=== PATIENT | female | born 1955 | race Caucasian/White ===

== ENCOUNTER → 2017-04-28 | Day surgery (SDC) | payer BC, OTHER ==
[2017-04-22 11:51] VITALS: Ht 162.6 cm; Wt 127.3 kg
[~2017-04-28] VITALS: Ht 162.6 cm; Wt 127.3 kg
[~2017-04-28] MED LIST: ALBU18002 INH; CITA20TA4 PO; LIDOCAINE HCL 2% 2 ML VIAL (20MG/ML) ONE; LPT/40 PO; METFTAB PO; PROPOFOL IV EMULSION 10 MG/ML 20 ML VIAL IV ONE; SODIUM CHLORIDE 0.9% 500ML 500 ML IV ONE; TRIA37.5 PO
[2017-04-28 08:14] VITALS: TEMP 36.7
--- NOTE | 2017-04-28 08:20 | Endo History and Physical ---
History & Physical Date of Service: Apr 28, 2017. Chief Complaint: screening,history of polyps Referring Physician: Dr. Hannah Siegel History of Present Illness Screening colonoscopy in patient at high risk (history of polyps) Past Surgical History Hx Cardiac Surgery: No Hx Internal Defibrillator: No Hx Pacemaker: No Hx Abdominal Surgery: Yes (TUBAL LIGATION) Hx of Implantable Prosthesis: No Hx Post-Op Nausea and Vomiting: No Hx Cancer Surgery: No Hx Thoracic Surgery: No Hx Orthopedic: Yes (RT KNEE ARTHROSCOPY) Hx Urinary Tract Surgery: No Family History IBD Social History Smoking Status: Never Smoker Hx Substance Use: No Hx Alcohol Use: No Allergies Coded Allergies: Amoxicillin (Verified Allergy, Unknown, HIVES, 04/22/17) Current Medications Reported Home Medications Medications Dose Route/Sig Max Daily Dose Days Date Category Proair Respiclick (Albuterol Sulfate) 108 Mcg/Act Aer 2 Puff INH QID PRN 04/22/17 Reported Lipitor (Atorvastatin) 40 Mg Tab 40 Mg PO QPM 04/22/17 Reported Citalopram Hydrobromide 20 Mg Tab 1 Tab PO DAILY AT NOON 90 04/22/17 Reported Glucophage Ext Rel (Metformin HCl) 500 Mg Tab 500 Mg PO DAILY AT NOON 04/22/17 Reported Dyazide 37.5MG/25MG (Triamterene/HCTZ) Cap 1 Tab PO DAILY AT NOON 04/22/17 Reported Vital Signs Weight (Kilograms): 127.27 Height (Feet): 5 Height (Inches): 4 Date Time Temp Pulse Resp B/P (MAP) Pulse Ox O2 Delivery O2 Flow Rate FiO2 04/28/17 08:14 36.7 74 16 154/95 (114) 97 Room Air Physical Exam General Appearance: WD/WN, no apparent distress, + obese Respiratory/Chest: Auscultation: breath sounds normal, no wheezing Cardiovascular: Heart Auscultation: RRR, no murmurs Abdomen: Inspection & Palpation: soft, no tenderness, guarding & rebound Assessment and Plan Cleared for colonoscopy.
--- NOTE | 2017-04-28 09:15 | GI REPORT ---
Procedure Date: 04/28/2017 8:41 AM Procedure: Colonoscopy Indications: High risk colon cancer surveillance: Personal history of colonic polyps Medicines: Propofol per Anesthesia Complications: No immediate complications. Estimated blood loss: None. Estimated Blood Loss: Estimated blood loss: none. Procedure: Pre-Anesthesia Assessment: - Prior to the procedure, a History and Physical was performed, and patient medications, allergies and sensitivities were reviewed. The patient's tolerance of previous anesthesia was reviewed. - ASA Grade Assessment: III - A patient with severe systemic disease. After I obtained informed consent, the scope was passed under direct vision. Throughout the procedure, the patient's blood pressure, pulse, and oxygen saturations were monitored continuously. The On-site loaner was introduced through the anus and advanced to the cecum, identified by appendiceal orifice and ileocecal valve. The colonoscopy was performed without difficulty. The patient tolerated the procedure well. The quality of the bowel preparation was excellent. The bowel preparation used was split dose MIralax. Findings: Many diverticula were found in the left colon. Impression: - Diverticulosis in the left colon. - No specimens collected. - The colon was otherwise normal to the cecum with retroflexed views of the colon and terminal ileum. Recommendation: - Repeat colonoscopy in 5 years for surveillance. - Discharge patient to home (with escort). Calvin Welsh M.D. Calvin Welsh MD 04/28/2017 9:14:57 AM This report has been signed electronically. Note Initiated On: 04/28/2017 8:41 AM I attest to the content of the Intraoperative Record and orders documented therein, exceptions below
--- NOTE | 2017-04-28 09:29 | Discharge Instructions ---
Endoscopy Patient Instructions Date / Procedure(s) Performed Apr 28, 2017. Colonoscopy Allergy Information Coded Allergies: Amoxicillin (Verified Allergy, Unknown, HIVES, 04/22/17) Discharge Date / Findings Apr 28, 2017. Diverticulosis. History of colon polyp. Medication Instructions Stopped Medication(s): stopped Metformin last Friday Restart Stopped Medication(s): Restart all medications today. Provider Instructions Activity Restrictions - No exercising or heavy lifting for 24 hours. - Do not drink alcohol the day of the procedure. - Do not drive a car or operate machinery until the day after the procedure. - Do not make any important decisions or sign important papers in 24 hours after the procedure. Following Day: - Return to full activity which may include returning to work/school. Diet Start your diet with liquids and light foods (jello, soup, juice, toast). Then eat your usual diet if not nauseated. Treatment For Common After Affects For mild abdominal pain, bloating, or excessive gas: - Rest - Eat lightly - Lie on right side Follow-Up Information Follow-up with Dr. Hannah Siegel as scheduled Anesthesia Information What You Should Know You have had a procedure that required some medicine to reduce anxiety and discomfort. This treatment is called moderate sedation. After receiving the treatment, you may be sleepy, but you will be able to breathe on your own. The effects of the treatment may last for several hours. Follow these instructions along with Activity/Diet recommendations noted above: * Do NOT do anything where dizziness or clumsiness would be dangerous. * Rest quietly at home today, then you can be up and about tomorrow. * Have a responsible person stay with you the rest of today. * You may have had an I.V. today. If so, you may take the dressing off later today. Recommendations Call your doctor if: * Trouble breathing * Continuous vomiting for more than 24 hours * Temperature above 101 degrees * Severe abdominal pain or bloating * Pain not relieved by pain medicine ordered * There is increased drainage or redness from any incision * A large amount of rectal bleeding greater than 2-3 tablespoons. (If you had a polyp/s removed or have hemorrhoids, a small amount of blood - from the rectum is to be expected.) * You have any unanswered questions or concerns. IN THE EVENT OF A SERIOUS EMERGENCY, GO TO THE NEAREST EMERGENCY ROOM Your discharge instructions were prepared by provider Calvin Welsh. Patient Instructions Signature Page Nandini San Patient (or Guardian) Signature/Date: I have read and understand the instructions given to me by my caregivers. Caregiver/RN/Doctor Signature/Date: The above-named patient and/or guardian has received patient instructions on this date. + Original Patient Signature Page (only) stays with chart. Please make copy for patient.
[2017-04-28 09:44] VITALS: BP 145/81; PULSE 67; O2SAT 96
--- NOTE | 2017-04-28 11:11 | Anesthesiology Progress Note ---
Anesthesia Post Op Note Date & Time Apr 28, 2017 at 11:11 Vital Signs Pain Intensity: 0 Vital Signs Past 12 Hours Date Time Temp Pulse Resp B/P (MAP) Pulse Ox O2 Delivery O2 Flow Rate FiO2 04/28/17 09:44 67 18 145/81 (102) 96 Room Air 04/28/17 09:27 70 18 118/84 (95) 97 Room Air 04/28/17 09:12 71 16 118/65 (82) 94 Room Air 04/28/17 08:14 36.7 74 16 154/95 (114) 97 Room Air Notes Mental Status: alert / awake / arousable, participated in evaluation Pt Amnestic to Procedure: Yes Nausea / Vomiting: adequately controlled Pain: adequately controlled Airway Patency, RR, SpO2: stable & adequate BP & HR: stable & adequate Hydration State: stable & adequate Anesthetic Complications: no major complications apparent
== END | disposition home or self-care (01) ==
LOC: C.GI 07:53
PROVIDERS: ATTEND Internal Medicine Gastroenterology
DX: Z12.11 Encounter for screening for malignant neoplasm of colon (principal); K57.30 Diverticulosis of large intestine without perforation or abscess without bleeding; Z86.010 Personal history of colon polyps; Z79.84 Long term (current) use of oral hypoglycemic drugs; Z79.899 Other long term (current) drug therapy

== ENCOUNTER 2024-11-13 15:35 | Observation (INO) ==
--- OUTSIDE RECORDS SUMMARY | 2024-11-13 15:42 | External Medical Summary | Summary of Care ---
Author Name Unknown Organization [facility] Address [address] [place] [address] Phone [phone] Care Team Providers Care Ambulatory Service Representative Name Role Phone Hannah Siegel DO Primary Care Provider Reason for Visit * Reason Comments Chemotherapy Taxotere and Cytoxan * Episode Based Medications (Routine) - Authorized Specialty Diagnoses / Procedures Referred By Contdaysi t Referred To Contact Diagnoses Prevention of chemotherapy-induced neutropenia Encounter for antineoplastic chemotherapy Malignant neoplasm of upper-outer quadrant of left breast in female, estrogen receptor negative (HCC) Procedures RI PALONOSETRON HCL RI INJECTION, FULPHILA RI DOCETAXEL INJECTION RI INJ CYCLOPHOSPHAMD Sudheer Sorensen MD [address] [place] [address] [place] [address] Phone: tel: fax: Hematology/Oncology Treatment, [address] [address] Phone: tel: fax: Referral ID Status Reason Start Date Expiration Date V isits Requested Visits Authorized [id number] Authorized 10/08/2024 04/07/2025 [id number] Encounter Details Date Type Department Care Team (Latest Contact Info) Description 11/09/2024 11:30 AM EDT Hem/Onc Treatment Hematology/Oncolog y Treatment, [address] [phone] Gillian, Chair 10 Hem Onc [address] [place] [address] Prevention of chemotherapy-induced neutropenia*; Encounter for antineoplastic chemotherapy; Malignant neoplasm of upper-outer quadrant of left breast in female, estrogen receptor negative (HCC) Allergies Active Allergy Reactions Criticality Noted Date Comments Amoxicillin 12/11/2000 [place] documented as of this encounter (statuses as of 11/09/2024) Medications Albuterol Sulfate HFA 108 (90 Base) MCG/ACT Inhalation Aerosol Solution Inhale 2 Puffs by mouth every 6 hours as needed for Shortness of Breath or Wheezing. 18 g 11 09/24/19 23 Active Additional Information Patient not taking.Reported on 10/15/2024 Levothyroxine Sodium 50 MCG Oral Tablet (Levoxyl) Take 1 Tablet by mouth in the morning. (at least 30 min prior to breakfast or other meds). 90 Tablet 3 04/28/20 24 Active Atorvastatin Calcium 40 MG Oral Tablet (Lipitor)Indicatio ns:Dyslipidemia, goal LDL below 100 Take 1 Tablet by mouth in the morning. 90 Tablet 3 08/31/19 25 Active Citalopram Hydrobromide 20 MG Oral Tablet (CeleXA) Take 1 Tablet by mouth in the morning. 90 Tablet 1 09/01/19 25 Active Naproxen Sodium 220 MG Oral Capsule (Aleve) Take 1 Capsule by mouth 2 times a day as needed for Pain, Moderate. Active Empagliflozin 10 MG Oral Tablet (Jardiance)Indicat ions:Type 2 diabetes mellitus with hemoglobin A1c goal of less than 7.5% ([facility]) Take 1 Tablet by mouth in the morning. 90 Tablet 3 09/14/19 25 Active Omeprazole 20 MG Oral Capsule Delayed Release (PriLOSEC)Indicati ons:Gastroesophage al reflux disease without esophagitis Take 1 Capsule by mouth in the morning. 1 hour before the first meal of the day. 90 Capsule 3 09/14/19 25 Active LORazepam 0.5 MG Oral Tablet (Ativan)Indication s:Malignant neoplasm of upper-outer quadrant of left breast in female, estrogen receptor negative (HCC) Take 1 Tablet by mouth 2 times a day as needed for Anxiety or Sleep. 60 Tablet 1 09/14/19 25 Active Additional Information Patient not taking.Reported on 10/15/2024 Losartan Potassium 25 MG Oral Tablet (Cozaar)Indication s:HTN, goal below 130/80 Take 1 Tablet by mouth in the morning. 90 Tablet 1 10/07/19 25 Active Diclofenac Sodium 1 % External Gel (Voltaren)Indicati ons:Primary osteoarthritis of both knees Apply topically to affected area 2 times a day. Apply to knee. 50 g 1 10/07/19 25 Active Ondansetron HCl 8 MG Oral Tablet (Zofran)Indication s:Malignant neoplasm of upper-outer quadrant of left breast in female, estrogen receptor negative (HCC) Take 1 Tablet by mouth every 8 hours as needed for Nausea. 30 Tablet 2 10/08/19 25 Active Additional Information Patient not taking.Reported on 10/15/2024 Prochlorperazine Maleate 10 MG Oral Tablet (Compazine)Indicat ions:Malignant neoplasm of upper-outer quadrant of left breast in female, estrogen receptor negative (HCC) Take 1 Tablet by mouth every 6 hours as needed for Nausea. 30 Tablet 3 10/08/19 25 Active Additional Information Patient not taking.Reported on 10/15/2024 dexAMETHasone 4 MG Oral Tablet (Decadron)Indicati ons:Malignant neoplasm of upper-outer quadrant of left breast in female, estrogen receptor negative (HCC) Take 2 tablets (8mg) by mouth twice a day for 3 days starting the day prior to chemotherapy. 48 Tablet 10/08/19 25 Active Additional Information Patient not taking.Reported on 10/15/2024 Triamterene-HCTZ 37.5-25 MG Oral TabletIndications: Hypokalemia,HTN, goal below 130/80 Take 1 Tablet by mouth in the morning. 30 Tablet 5 10/14/19 25 Active Potassium Chloride Sloane ER 20 MEQ Oral Tablet Extended ReleaseIndications :Hypokalemia Take 1 Tablet by mouth in the morning and 1 Tablet before bedtime. 180 Tablet 1 10/16/19 25 Active Loratadine 10 MG Oral Tablet (Claritin)Indicati ons:Malignant neoplasm of upper-outer quadrant of left breast in female, estrogen receptor negative (HCC) TAKE 1 TABLET BY MOUTH FOR 5 DAYS STARTING THE DAY OF CHEMOTHERAPY. 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 documented as of this encounter (statuses as of 11/09/2024) Resolved Problems Problem Noted Date Diagnosed Date Resolved Date Ganglion cyst of joint of fi nger of right hand 10/26/2021 04/18/2023 Morbid obesity due to excess calories 03/03/2020 03/20/2021 Cough 03/10/2019 03/03/2020 Chronic right-sided low back pain with right-sided sciatica 03/10/2019 11/18/2023 Prediabetes 03/04/2018 09/12/2020 Anxiety state 08/27/2017 03/04/2018 Essential hypertension with goal blood pressure less than 140/90 08/19/2016 09/12/2020 Thoracic degenerative disc disease 08/19/2016 08/27/2017 BLANCA (generalized anxiety disorder) 04/10/2015 11/18/2023 Persistent insomnia 12/28/2014 08/27/19 18 HTN, goal below 140/90 12/28/201408/19 HTN, goal below 140/80 03/30/201212/28 Overview: Per HTN Protocol #27. Obesity, Class III, BMI 40-4 9.9 (morbid obesity) 08/21/2011 03/20/2021 Major depressive disorder 08/21/2011 Overview (06/03/2017): ICD-10 update of inactive term Primary localized osteoarthrosis, lower leg 04/09/2011 04/01/2017 Body mass index (BMI) of 40.0-44.9 in adult 12/06/2010 08/21/2011 Overview (11/21/2015): ICD-10 update of inactive term Asthma with severity to be determined 02/01/2010 08/01/2010 Overview (11/20/2015): Per Asthma Taxonomy ICD-10 update of inactive term Obesity, morbid (more than 1 00 lbs over ideal weight or BMI > 40) 01/23/2010 12/06/2010 Overview (10/30/2015): Per Obesity Protocol, #19 ICD-10 update of inactive term HTN, goal below 140/90 06/16/200908/10 Overview (06/16/2009): Modified per HTN Taxonomy. DM type 2 causing eye disease 06/08/2009 03/04/2018 Overview (12/05/2015): Per Diabetes Taxonomy. ICD-10 update of inactive term Type 2 diabetes mellitus wit h hemoglobin A1c goal of less than 7.0% 05/17/2008 06/08/2009 Overview (12/05/2015): Per Diabetes Taxonomy. ICD-10 update of inactive term Degeneration of cervical intervertebral disc 8 08/27/2017 Dyslipidemia, goal LDL below 160 09/15/2007 07/18/2009 Overview (07/18/2009): Per Lipid Taxonomy. LUMB-LUMBOSAC DISC DEGEN 05/21/2006 ADVANCE DIRECTIVE INFORMATION 08/26/2005 08/27/2017 Overview (08/26/2005): No, Advance Directive brochure given to patient at prior appointment. Major depressive disorder, r ecurrent severe without psychotic features 07/24/2005 08/21/2011 INTRINSIC ASTHMA UNSPEC 05/27/200501/10 Other allergic rhinitis 07/23/200408/11 Overview (06/03/2017): ICD-10 update of inactive term Rosacea 01/30/2004 03/04/2018 Wheezing 11/01/2003 11/10/2007 LOC PRIM [id number] 01/28/200311/09 Morbid obesity, BMI not known 07/16/2002 08/16/2008 SPRAIN SHOULDER-ARM NEC 01/08/200208/2007 Excessive menstruation 11/24 Peptic ulcer 11/10/2007 FEM STRESS INCONTINENCE 08/12 Tension headache 08/27/2017 Hypopotassemia 11/10/2007 BENIGN HYPERTENSION 11/10/19 08 DM type 2, not at goal 05/17 HTN, goal below 140/90 06/16 Overview (06/16/2009): Modified per HTN Taxonomy. documented as of this encounter (statuses as of 11/09/2024) Immunizations Name Administration Dates Next Due COVID-19 mRNA, LNP-s, No Pre serve, 2-Dose Series (Fotofeedback) 04/05/2021,03/15/2021 COVID-19, LNP-s, No Preserve , Tom-sucrose, Ages 12+ (Pfizer) 03/26/2022,09/25/2021 Pneumococcal Conjugate Vacci ne, 20-valent ([id number]) 03/26/2022 Pneumococcal Polysaccharide PPV23 (Pneumovax) 04/28/2012,12/06/2010(Deferred: Patient Refused - ins.) Seasonal Influenza Vac., MDV , IM, 0.5 mL (Fluzone) 05/20/2016,06/16/2014,05/27/2013,04/28,07/11/2011,05/11/2010,05/18/2009 ,07/08/2001 Seasonal Influenza, PF, 6 M & above, IM , (FluLaval or Fluzone) 06/04/2022,05/11/2019,05/11/2018 Seasonal Influenza, Quadriva lent Hd (Fluzone Hd) 04/18/2023 Seasonal Influenza, Quadriva lent, No Preserve, IM 05/02/2020,06/12/2018,05/20/2017,05/20,06/23/2015 Seasonal Influenza, Quadriva lent, No Preserve, Mdck 06/04/2021,05/20/2019 TD - Tetanus/Diptheria (ADULT) 02/20/1999 TDAP, Age 7 and older, IM (Adacel) 06/04/2022, Zoster Vaccine Recombinant (Shingrix) 03/03/2020 ,09/22/2019 documented as of this encounter Social History Tobacco Use Types Packs/Day Years Used Date Smoking Tobacco: Never Smokeless Tobacco: Never Alcohol Use Standard Drinks/Week Comments No 0 (1 standard drink = 0.6 oz pur e alcohol) PHQ-2 Answer Date Recorded PHQ Adult Total Score 0 04/18/2023 Hunger Vital Sign Answer Date Recorded Within the past 12 months, y ou worried that your food would run out before you got the money to buy more. Never true 06/08/20 24 Within the past 12 months, t he food you bought just didn't last and you didn't have money to get more. Never true 06/08/2024 Childcare Answer Date Recorded Do you feel overwhelmed with taking care of a child, family member or friend? Yes 06/08/2024 Does your family need help f inding childcare? (Household - for ages 0-17 years) Not on file 06/08/2024 Clothing Answer Date Recorded Have you been unable to get clothing when it was really needed? No 06/08/2024 Is your family able to get c lothes or diapers when needed? (Household - for ages 0-17 years) Not on file 06/08/2024 Personal Safety Answer Date Recorded Do you feel unsafe or have concerns for your saf ety? No 06/08/2024 Do you have concerns for you r family's safety? (Household - for ages 0-17 years) Not on file 06/08/2024 Utilities Answer Date Recorded Do you have trouble paying y our heating, water, or electric bill? No 06/08/2024 Is your family able to pay t he heat, water, or electric bill? (Household - for ages 0-17 years) Not on file 06/08/2024 Does your family have access to good internet? (Household - for ages 0-17 years) Not on file 06/08/2024 Employment Status Answer Date Recorded Are you unemployed or without regular income? No 06/08/2024 Does the household have a re gular source of income? (Household - for ages 0-17 years) Not on file 06/08/2024 Social Connections Answer Date Recorded How often do you feel lonely or isolated from th ose around you? Rarely 06/08/2024 Financial Resource Strain Answer Date R ecorded Do you have any trouble payi ng for your medications, or do you think you might in the future? No 06/08/2024 Does your family have troubl e paying for medicine? (Household - for ages 0-17 years) Not on file 06/08/2024 Transportation Needs Answer Date Record ed Do you have trouble getting a ride to medical visits or work? (Adult - for ages 18 years and over) Not on file 06/08/2024 Does your family have a hard time getting a ride to doctors visits? (Household - for ages 0-17 years) Not on file 06/08/2024 Has lack of transportation k ept you from medical appointments, meetings, work, or from getting things needed for daily living? Check all that apply. No 06/08/2024 Do you (or your family) have trouble finding or paying for a ride (transportation)? (Household - for ages 0-17 years) Not on file 06/08/2024 Housing Stability Answer Date Recorded Do you currently live in a s helter or have no steady place to sleep at night? No 06/08/2024 Do you think you are at risk of becoming homeless? (Adult - for ages 18 years and over) Not on file 06/08/2024 Does your family worry about paying for your home or becoming homeless? (Household - for ages 0-17 years) Not on file 1 Are you homeless or worried that you might be in the future? No 06/08/2024 Are you (or your family) andres eless or worried that you might be in the future? (Household - for ages 0-17 years) Not on file Food Insecurity Answer Date Recorded Do you need food for this week? No 06/08/2024 Are you able to get enough f ood for your family? (Household - for ages 0-17 years) Not on file 06/08/2024 Does your family need food t his week? (Household - for ages 0-17 years) Not on file 06/08/2024 Do you always have enough fo od for your family? (Household - for ages 0-17 years) Not on file 06/08/2024 Food Insecurity Answer Date Recorded Within the past 12 months, y ou worried that your food would run out before you got the money to buy more. Never true 06/08/20 24 Within the past 12 months, t he food you bought just didn't last and you didn't have money to get more. Never true 06/08/2024 Do you need food for this week? 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 Patient tolerated well. Elects to keep port accessedfor tomorrow's hydration appointment. Port flushed with 10ml NSS, blood return noted, then locked with additional 10ml NSS and capped with alcohol cap. Goals: Patient will remain free from injury Possible barriers to meeting goals: ambulating with IV pole Stability of the patient: Moderately stable - low risk of patient condition declining or worsening Summary regarding today's goals: Patient remained free from injury Patient denies further needs at this time. Ambulatory from facility in stable condition. * Martita Heath, RN - 11/09/2024 12:33 PM EDT Chair 1. Patient presents for C2,D1 taxotere and cytoxan. Overall doing well. Saw Dr. Pisano today - see OV note for details. Port accessed using sterile technique. Blood return noted. Pt tolerated well. Chemotherapy/Immunotherapy agents: TAXOTERE and CYTOXAN Consent for chemotherapy drug treatment complete, dated, and signed? yes, date - 10/12/24 Treatment lab parameters met? Yes Has treatment weight changed > than 10%? No Treatment preauthorized? Yes VITALS There were no vitals filed for this visit. BP Readings from Last 2 Encounters: 11/09/24 117/73 10/21/24 126/67 Pulse Readings from Last 2 Encounters: 11/09/24 67 10/21/24 92 Resp Readings from Last 2 Encounters: 10/21/24 16 10/20/24 16 SpO2 Readings from Last 2 Encounters: 11/09/24 93% 10/21/24 92% Temp Readings from Last 2 Encounters: 11/09/24 36.9 °C (98.4 °F) (Tympanic) 10/21/24 36.4 °C (97.5 °F) (Tympanic) Urine protein: N/A Patient education completed for treatment? Yes Blood transfusion consent signed and complete? NA Return appointment scheduled? Yes Patient had provider visit today? Yes - Ok to release order and treat per provider Functional Status: Functional status at today's visit: Fully active, able to carry on all pre-disease performance without restriction The drug name, dose, infusion volume, rate and route of administration, expiration date and time, appearance and physical integrity of the drug and rate set on the pump and sequencing of drug administration (as applicable) were verified by me and second sign-in RN. Patient was assessed for symptoms or adverse side effects during treatment. Patient Education: Patient instructed on use of heat and massage functions where applicable. Patient shown how to operate the heat function of the chair and to alert nursing staff if the chair feels too warm. Patient instructed on the risk of potential cristobal while using the heat function. Safety and Risk for Injury Patient will remain free from injury. Ensure appropriate safety devices are available. Provide and maintain safe environment. documented in this encounter Plan of Treatment Upcoming Encounters Date Type Department Care Team (Late st Contact Info) Description 11/10/2024 2:00 PM EDT Hem/Onc Treatment Hematology/Oncology Treatment, [place] [address] [facility] [place] [phone] Gillian, Chair 3 Hem Onc Scenery [address] [facility] [place] [id number] 11/29/2024 9:30 AM EDT Laboratory Laboratory [address] [place] [phone] [address] [place] [address] 11/30/2024 9:30 AM EDT Office Visit Hematology/Oncology [facility] [place] [address] [facility] [place] [phone] Sudheer Pisano MD [address] [facility] [place] [address] 11/30/2024 10:00 AM EDT Hem/Onc Treatment Hematology/Oncology Treatment, [place] [address] [facility] [place] [phone] Gillian, Chair 8 Hem Onc [facility] [address] [facility] [place] [address] 01/13/2025 10:30 AM EDT Imaging Radiology [address] [place] [phone] 03/23/2025 9:30 AM EDT Office Visit Family Medicine [address] [place] [phone] Hannah Siegel[address] [place] [address] 08/01/2025 10:00 AM EST Imaging Radiology [address] [place] [phone] 10/18/2025 9:00 AM EDT Office Visit General Surgery, [facility] [address] [place] [phone] Tatiana Horowitz MD [address] [place] [address] Scheduled Procedures Name Priority Associated Diagnoses Date/Ti me COLONOSCOPY FLEXIBLE PROXIMA L DIAGNOSTIC Recall History of colonic polyps Health Maintenance Due Date Last Done Comments Depression Monitoring 1969 Cologuard 2002 Sigmoidoscopy 2002 Fecal Occult Blood Test 02/25/2008 02/24/2007 Adult Wellness Visit 2023 COVID-19 Vaccine ( season) 2024 03/26/2022, 09/25/2021, 04/05/2021, Additional history exists *NEPHROLOGY REFERRAL DUE TO RESISTANT HTN 09/17/2024 Diabetic Foot Exam 11/17/2024 11/18/2023, 0 10/03/2022, 09/25/2021, Additional history exists TSH 11/17/2024 11/18/2023, 04/12, 10/03/2022, Additional history exists HbA1c 01/27/2025 07/29/2024, 04/04/2024, 05/02/2023, Additional history exists Diabetic Eye Exam 03/25/2025 03/25/2024, , 07/26/2021, Additional history exists Albumin/Creatinine Ratio 07/29/2025 024, 05/02/2023, 03/26/2022, Additional history exists Mammogram 07/30/2025 07/30/2024, 07/11, 07/22/2023, Additional history exists GFR 11/08/2025 11/08/2024, 10/09, 10/12/2024, Additional history exists Colonoscopy 11/23/2027 11/22/2022, 04/11, 04/28/2017, Additional history exists Colorectal Cancer Screening 11/23/2027 Lipid Panel 11/17/2028 11/18/2023, 04/12, 03/26/2022, Additional history exists DXA Scan 05/27/2031 05/27/2022 DTap/Tdap Vaccines (3 - Td or Tdap) 06/04/2032 06/04/2022, 12/24/2011, 02/20/1999, Additional history exists Zoster Vaccines Completed 03/03/2020, 09/22/2019 Pap Smear Discontinued 11/08/2021, 10/09, 02/15/2015, Additional history exists Pneumococcal Vaccine: 50+ Years Completed 03/26/2022, 04/28/2012 RETIRED - COLONOSCOPY-EVERY 5 YRS AGES 18-100 Discontinued 11/22/2022, 04/28/2017, 04/28/2017, Additional history exists Influenza Vaccine (FLU shot) Completed 05/04/2024, 04/18/2023, 04/18/2023, Additional history exists HPV (Gardasil) Vaccine Aged Out No lo nger eligible based on patient's age to complete this topic Hepatitis B Vaccine Aged Out No longe r eligible based on patient's age to complete this topic MENINGOCOCCAL (MENACTRA/MENVEO) Aged Out No longer eligible based on patient's age to complete this topic Meningitis B Vaccine (Bexsero/Trumemba) Aged Out No longer eligible based on patient's age to complete this topic documented as of this encounter Medical Devices Implanted Type Area Pattern Shop Supervisor Device Identifier Shelf Expiration Date Model / Serial / Lot Reflector Tameka It Trainee 7.5cm - [id number] Implanted:Qty: 1 on 09/22/2024 at [facility] 04/28/2027 [id number] / / Port Implant W8f Poly Cath - [id number] Implanted:Qty: 1 on 10/15/2024 by Carroll Chowdhury MD at OR [facility] Right: Chest CR BARD : PERIPHERAL VASCULAR [id number] 10/08/2025 [id number] / / [id number] documented as of this encounter Visit Diagnoses Diagnosis Prevention of chemotherapy-induced neutropenia- Primary Encounter for antineoplastic chemotherapy Malignant neoplasm of upper-outer quadrant of left breast in female, estrogen receptor negative (HCC) documented in this encounter Administered Medications Inactive Administered Medications - up to 3 most recent administrations Medication Order MAR Action Action Date Dose Rate Site cycloPHOSphamide (Cytoxan) 1,370 mg in NSS 500 mL infusion 1,370 mg (rounded from 1,374 mg = 600 mg/m2 2.29 m2 Treatment Plan BSA from Recorded weight), IV Piggyback, ONCE, On Fri11/09/24 at 1300, For 1 dose, Cyclophosphamide doses over 1g should be in 500 mL.May extend infusion to 1 hour if not tolerated.Indications:Preve ntion of chemotherapy-induced neutropenia,Encounter for antineoplastic chemotherapy,Malignant neoplasm of upper-outer quadrant of left breast in female, estrogen receptor negative (HCC) Start Infusion 11/09/2024 1:21 PM EDT 1,370 mg 1033.7 mL/hr dexAMETHasone (Decadron) tab 12 mg 12 mg, Oral, ONCE, On Fri11/09/24 at 1230, For 1 doseIndications:Prevention of chemotherapy-induced neutropenia,Encounter for antineoplastic chemotherapy,Malignant neoplasm of upper-outer quadrant of left breast in female, estrogen receptor negative (HCC) Given 11/09/2024 12:04 PM EDT 12 mg diphenhydrAMINE (Benadryl) cap 25 mg 25 mg, Oral, Q6H, First dose on Fri11/09/24 at 1200, Until DiscontinuedIndications:Pre vention of chemotherapy-induced neutropenia,Encounter for antineoplastic chemotherapy,Malignant neoplasm of upper-outer quadrant of left breast in female, estrogen receptor negative (HCC) Given 11/09/2024 12:04 PM EDT 25 mg DOCEtaxel (Taxotere) 180 mg in NSS 250 mL infusion 180 mg (rounded from 171.75 mg = 75 mg/m2 2.29 m2 Treatment Plan BSA from Recorded weight), IV Piggyback, at 264 mL/hr Administer over 60 Minutes, ONCE, 1 dose, On Fri11/09/24 at 1400Indications:Prevention of chemotherapy-induced neutropenia,Encounter for antineoplastic chemotherapy,Malignant neoplasm of upper-outer quadrant of left breast in female, estrogen receptor negative (HCC) Start Infusion 11/09/2024 12:16 PM EDT 180 mg 264 mL/hr NSS infusion Intravenous, at 50 mL/hr, PRN, Starting on Fri11/09/24 at 1230, Until Fri11/09/24 at 1841, Maintenance lineIndications:Prevention of chemotherapy-induced neutropenia,Encounter for antineoplastic chemotherapy,Malignant neoplasm of upper-outer quadrant of left breast in female, estrogen receptor negative (HCC) Start Infusion 11/09/2024 12:07 PM EDT 50 mL/hr Palonosetron (Aloxi) inj SOLN 0.25 mg 0.25 mg, IV Push, ONCE, On Fri11/09/24 at 1230, For 1 dose, Restricted per [facility] antiemetic guidelinesIndications:Preve ntion of chemotherapy-induced neutropenia,Encounter for antineoplastic chemotherapy,Malignant neoplasm of upper-outer quadrant of left breast in female, estrogen receptor negative (HCC) Given 11/09/2024 12:04 PM EDT 0.25 mg sodium chloride 0.9 % flush/inj 20 mL 20 mL, IV Push, PRN IV Flush and Lock, Starting on Fri11/09/24 at 1122, Until Fri11/09/24 at 1841, Do not flush if lock, PICC, or central line not in place; IV infusing or unable to flush. For midlines and central lines. For IV Flush and Lock, IVAD is flushed with a total of 20 mL Normal Saline, 10 mL of Normal Saline Flush with 10 mL of Normal Saline acting as IV LOCK.Indications:Prevention of chemotherapy-induced neutropenia,Encounter for antineoplastic chemotherapy,Malignant neoplasm of upper-outer quadrant of left breast in female, estrogen receptor negative (HCC) Given 11/09/2024 1:54 PM EDT 20 mL documented in this encounter Advance Directives * Full Code (Latest Code Status on File) Date Activated Date Inactivated Comments 09/28/2024 6:30 AM 09/28/2024 3:13 PM This order r eflects the patients wishes and were consensually agreed upon. Question Answer Comments Discussion of Advance Directives occurred with: Patient Care Teams Ambulatory Service Representative Relationship Specialty Start Date End Date Hannah Siegel DO [address] [place] [address] [place] [address] PCP - General Internal Medicine 04/25/17 documented as of this encounter
--- OUTSIDE RECORDS SUMMARY | 2024-11-13 15:42 | External Medical Summary | Summary of Care ---
Author Name Unknown Organization [facility] Address [address] [place] [address] Phone [phone] Care Team Providers Care Ballroom Dance Instructor Name Role Phone Hannah Siegel DO Primary Care Provider Reason for Visit * Reason Comments Chemotherapy Taxotere and Cytoxan * Episode Based Medications (Routine) - Authorized Specialty Diagnoses / Procedures Referred By Contdaysi t Referred To Contact Diagnoses Prevention of chemotherapy-induced neutropenia Encounter for antineoplastic chemotherapy Malignant neoplasm of upper-outer quadrant of left breast in female, estrogen receptor negative (HCC) Procedures MO PALONOSETRON HCL MO INJECTION, FULPHILA MO DOCETAXEL INJECTION MO INJ CYCLOPHOSPHAMD Sudheer Sorensen MD [address] [place] [address] [place] [address] Phone: tel: fax: Hematology/Oncology Treatment, [address] [address] Phone: tel: fax: Referral ID Status Reason Start Date Expiration Date V isits Requested Visits Authorized [id number] Authorized 10/08/2024 04/07/2025 999 [id number] Encounter Details Date Type Department Care Team (Latest Contact Info) Description 11/09/2024 11:30 AM EDT Hem/Onc Treatment Hematology/Oncolog y Treatment, [address] [phone] Gillian, Chair 10 Hem Onc [address] [place] [address] Prevention of chemotherapy-induced neutropenia*; Encounter for antineoplastic chemotherapy; Malignant neoplasm of upper-outer quadrant of left breast in female, estrogen receptor negative (HCC) Allergies Active Allergy Reactions Criticality Noted Date Comments Amoxicillin 12/11/2000 [place] documented as of this encounter (statuses as of 11/10/2024) Medications Albuterol Sulfate HFA 108 (90 Base) [...] hemoglobin A1c goal of less than 7.5% ([facility]) Take 1 Tablet by mouth in [...] as of this encounter (statuses as of 11/10/2024) Active Problems Problem Noted Date Diagnosed Date [...] as of this encounter (statuses as of 11/10/2024) Resolved Problems Problem Noted Date Diagnosed Date [...] 01/30/2004 03/04/2018 Wheezing 11/01/2003 11/10/2007 LOC PRIM [id number] 01/28/200311/09 Morbid obesity, BMI not known 07/16/2002 08/16/2008 SPRAIN SHOULDER-ARM NEC 01/08/200208/2007 Excessive menstruation 11/24 Peptic ulcer 11/10/2007 FEM STRESS INCONTINENCE 08/12 Tension headache 08/27/2017 Hypopotassemia 11/10/2007 BENIGN HYPERTENSION 11/10/19 08 DM type 2, not at goal 05/17 HTN, goal below 140/90 06/16 Overview (06/16/2009): Modified per HTN Taxonomy. 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 [place] [address] 11/29/2024 9:30 AM EDT Laboratory Laboratory [address] [place] [phone] [address] [place] [address] 11/30/2024 9:30 AM EDT Office Visit Hematology/Oncology [facility] [place] 200 [facility] [place] [phone] Sudheer Pisano MD 200 [facility] [place] [address] 11/30/2024 10:00 AM EDT Hem/Onc Treatment Hematology/Oncology Treatment, [place] 200 [facility] [place] [phone] Gillian, Chair 8 Hem [facility]c [facility] [address] [facility] [place] [address] 01/13/2025 10:30 AM EDT Imaging Radiology [address] [place] [address] 03/23/2025 9:30 AM EDT Office Visit Family Medicine [address] [place] [phone] Hannah Siegel[address] [place] [address] 08/01/2025 10:00 AM EST Imaging Radiology [address] [place] [address] 10/18/2025 9:00 AM EDT Office Visit General Surgery, [facility] [address] [place] [phone] Tatiana Horowitz MD [address] [place] [address] Scheduled Procedures Name Priority Associated Diagnoses Date/Ti [...] this encounter Medical Devices Implanted Type Area Smoke Control Supervisor Device Identifier Shelf Expiration Date Model / Serial / Lot Reflector Tameka Seismic Observer 7.5cm - [id number] Implanted:Qty: 1 on 09/22/2024 at [facility] OUTPATIENT RX CL[facility]ICS [facility] 04/28/2027 [id number] / / Port Implant W8f Poly Cath - [id number] Implanted:Qty: 1 on 10/15/2024 by Carroll Chowdhury MD at OR [facility] Right: Chest CR BARD : PERIPHERAL VASCULAR [id number] 10/08/2025 [id number] / / [id number] documented as of this encounter Visit Diagnoses [...] at 1230, For 1 dose, Restricted per [facility] antiemetic guidelinesIndications:Preve ntion of chemotherapy-induced neutropenia,Encounter for [...] Advance Directives occurred with: Patient Care Teams Ballroom Dance Instructor Relationship Specialty Start Date End Date Hannah Siegel DO [address] [place] [address] [place] [address] PCP - General Internal Medicine 04/25/17 documented as of this encounter
--- OUTSIDE RECORDS SUMMARY | 2024-11-13 15:42 | External Medical Summary | Summary of Care ---
Author Name Unknown Organization [facility] Address [address] [place] [address] Phone [phone] Care Team Providers Care Metal Burnisher Name Role Phone Hannah Siegel DO Primary Care Provider Reason for Visit * Reason Comments Medication Administration Fulphila, IV h ydration * Episode Based Medications (Routine) - Authorized Specialty Diagnoses / Procedures Referred By Contdaysi t Referred To Contact Diagnoses Prevention of chemotherapy-induced neutropenia Encounter for antineoplastic chemotherapy Malignant neoplasm of upper-outer quadrant of left breast in female, estrogen receptor negative (HCC) Procedures DE PALONOSETRON HCL DE INJECTION, FULPHILA DE DOCETAXEL INJECTION DE INJ CYCLOPHOSPHAMD Sudheer Sorensen MD 200 [facility] [place] [address] Phone: tel: fax: Hematology/Oncology Treatment, [address] [address] Phone: tel: fax: Referral ID Status Reason Start Date Expiration Date V isits Requested Visits Authorized [id number] Authorized 10/08/2024 04/07/2025 999 99 Encounter Details Date Type Department Care Team (Latest Contact Info) Description 11/10/2024 2:00 PM EDT Hem/Onc Treatment Hematology/Oncolog y Treatment, [address] [place] [address] Gillian, Chair 3 Hem Onc [address] [place] [address] Prevention of chemotherapy-induced neutropenia*; Encounter for antineoplastic chemotherapy; Malignant neoplasm of upper-outer quadrant of left breast in female, estrogen receptor negative (HCC) Allergies Active Allergy Reactions Criticality Noted Date Comments Amoxicillin 12/11/2000 [place] documented as of this encounter (statuses as of 11/11/2024) Medications Albuterol Sulfate HFA 108 (90 Base) [...] hemoglobin A1c goal of less than 7.5% ([facility]) Take 1 Tablet by mouth in the [...] as of this encounter (statuses as of 11/11/2024) Active Problems Problem Noted Date Diagnosed Date [...] as of this encounter (statuses as of 11/11/2024) Resolved Problems Problem Noted Date Diagnosed Date [...] 01/30/2004 03/04/2018 Wheezing 11/01/2003 11/10/2007 LOC PRIM [id number] 01/28/200311/09 Morbid obesity, BMI not known 07/16/2002 08/16/2008 SPRAIN SHOULDER-ARM NEC 01/08/200208/2007 Excessive menstruation 11/24 Peptic ulcer 11/10/2007 FEM STRESS INCONTINENCE 08/12 Tension headache 08/27/2017 Hypopotassemia 11/10/2007 BENIGN HYPERTENSION 11/10/19 08 DM type 2, not at goal 05/17 HTN, goal below 140/90 06/16 Overview (06/16/2009): Modified per HTN Taxonomy. documented as of this encounter (statuses as of 11/11/2024) Immunizations Name Administration Dates Next Due COVID-19 mRNA, LNP-s, No Pre serve, 2-Dose Series (IR Diagnostyx) 04/05/2021,03/15/2021 COVID-19, LNP-s, No Preserve , Tom-sucrose, Ages 12+ (Pfizer) 03/26/2022,09/25/2021 Pneumococcal Conjugate Vacci ne, 20-valent ([id number]) 03/26/2022 Pneumococcal Polysaccharide PPV23 (Pneumovax) 04/28/2012,12/06/2010(Deferred: Patient Refused - ins.) Seasonal Influenza Vac., MDV , IM, 0.5 mL (Fluzone) 05/20/2016,06/16/2014,05/27/2013,04/28,07/11/2011,05/11/2010,05/18/2009 Seasonal Influenza, PF, 6 M & above, [...] 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 Patient tolerated well. Port needle flushed with 10 ml NSS, blood return noted, and port locked with additional 10 ml NSS. W[place]sworth needle removed, intact, gauze dressing applied. Goals: Patient will remain free from injury. Possible barriers to meeting goals: ambulating with IV pole, use of walker Stability of the patient: Moderately stable - low risk of patient condition declining or worsening Summary regarding today's goals: Met: Patient remained free from harm/injury during treatment. Patient left facility in stable condition. * Maryam Ramachandran RN - 11/10/2024 2:15 PM EDT Chair 8, patient here for IV hydration and Fulphila injection. Patient with no complaints. Port remained accessed from 11/09/24, dressing intact, + blood return, flushes easily. Fulphila injection given without difficulty, patient tolerated well. Safety and Risk for Injury Patient will remain free from injury. Ensure appropriate safety devices are available. Provide and maintain safe environment. Patient instructed on use of heat and massage functions where applicable. Patient shown how to operate the heat function of the chair and to alert nursing staff if the chair feels too warm. Patient instructed on the risk of potential cristobal while using the heat function. documented in this encounter Plan of Treatment Upcoming Encounters Date Type Department Care Team (Late st Contact Info) Description 11/29/2024 9:30 AM EDT Laboratory Laboratory [address] [place] [phone] [place], [address] [place] [address] 11/30/2024 9:30 AM EDT [facility] [address] [place] [address] [place] [phone] Sudheer Pisano MD [address] [place] [address] 11/30/2024 10:00 AM EDT Hem/Onc Treatment Hematology/Oncology Treatment, [place] [address] [facility] [place] [phone] Gillian, Chair 8 Hem Onc Scen[address] [place] [address] 01/13/2025 10:30 AM EDT Imaging Radiology [address] [place] [address] 03/23/2025 9:30 AM EDT Office Visit Family Medicine [address] [place] [phone] [address] [place] [address] 08/01/2025 10:00 AM EST Imaging Radiology [address] [place] [address] 10/18/2025 9:00 AM EDT Office Visit General Surgery, [facility] [address] [place] [phone] Tatiana Horowitz MD [address] [place] [address] Scheduled Procedures Name Priority Associated Diagnoses Date/Ti [...] 10/03/2022, Additional history exists HbA1c 01/27/2025 07/29/2024, 04/0 04/2024, 05/02/2023, Additional history exists Diabetic Eye Exam [...] this encounter Medical Devices Implanted Type Area Double End Sewer Device Identifier Shelf Expiration Date Model / Serial / Lot Reflector Tameka High Pressure Firer 7.5cm - [id number] Implanted:Qty: 1 on 09/22/2024 at [facility] 04/28/2027 [id number] / / Port Implant W8f Poly Cath - [id number] Implanted:Qty: 1 on 10/15/2024 by Carroll Chowdhury MD at OR [facility] Right: Chest CR BARD : PERIPHERAL VASCULAR [id number] 10/08/2025 [id number] / / [id number] documented as of this encounter Visit Diagnoses Diagnosis Prevention of chemotherapy-induced neutropenia- Primary Encounter for antineoplastic chemotherapy Malignant neoplasm of upper-outer quadrant of left breast in female, estrogen receptor negative (HCC) documented in this encounter Administered Medications Inactive Administered Medications - up to 3 most recent administrations Medication Order MAR Action Action Date Dose Rate Site NSS infusion FOR HYDRATION Intravenous, at 500 mL/hr Administer over 2 Hours, ONCE, 1 dose, On Fri11/10/24 at 1445Indications:Prevent ion of chemotherapy-induced neutropenia,Encounter for antineoplastic chemotherapy,Malignant neoplasm of upper-outer quadrant of left breast in female, estrogen receptor negative (HCC) Start Infusion 11/10/2024 2:07 PM EDT 1,000 mL 500 mL/hr Pegfilgrastim-jmdb (Fulphila) inj 6 mg 6 mg, Subcutaneous, ONCE, On Fri11/10/24 at 1445, For 1 doseIndications:Prevent ion of chemotherapy-induced neutropenia,Encounter for antineoplastic chemotherapy,Malignant neoplasm of upper-outer quadrant of left breast in female, estrogen receptor negative (HCC) Given 11/10/2024 2:09 PM EDT 6 mg Arm Right Upper sodium chloride 0.9 % flush/inj 20 mL 20 mL, IV Push, PRN IV Flush and Lock, Starting on Fri11/10/24 at 1402, Until Fri11/10/24 at 2013, Do not flush if lock, PICC, or central line not in place; IV infusing or unable to flush. For midlines and central lines. For IV Flush and Lock, IVAD is flushed with a total of 20 mL Normal Saline, 10 mL of Normal Saline Flush with 10 mL of Normal Saline acting as IV LOCK.Indications:Preven tion of chemotherapy-induced neutropenia,Encounter for antineoplastic chemotherapy,Malignant neoplasm of upper-outer quadrant of left breast in female, estrogen receptor negative (HCC) Given 11/10/2024 4:06 PM EDT 20 mL documented in this encounter Advance Directives * Full Code (Latest Code Status on File) Date Activated Date Inactivated Comments 09/28/2024 6:30 AM 09/28/2024 3:13 PM This order r eflects the patients wishes and were consensually agreed upon. Question Answer Comments Discussion of Advance Directives occurred with: Patient Care Teams Metal Burnisher Relationship Specialty Start Date End Date Hannah Siegel DO [address] [place] [address] [place] [address] PCP - General Internal Medicine 04/25/17 documented as of this encounter
--- OUTSIDE RECORDS SUMMARY | 2024-11-13 15:42 | External Medical Summary | Summary of Care ---
Author Name Unknown Organization [facility] Address [address] [place] [address] Phone [phone] Care Team Providers Care Psychological Aide Name Role Phone Hannah Siegel Primary Care Provider Reason for Visit * Reason Onset Date Comments Follow Up 11/09/2024 Encounter Details Date Type Department Care Team (Late st Contact Info) Description 11/09/2024 Telephone Hematology/Oncology [facility] [address] [place] [phone] Sudheer Pisano MD 200 [place] [address] Follow Up Allergies Active Allergy Reactions Criticality Noted Date [...] hemoglobin A1c goal of less than 7.5% (HCC) Take 1 Tablet by mouth in the [...] 01/30/2004 03/04/2018 Wheezing 11/01/2003 11/10/2007 LOC PRIM [id number] 01/28/200311/09 Morbid obesity, BMI not known 07/16/2002 08/16/2008 SPRAIN SHOULDER-ARM NEC 01/08/2002 04/0 08/2007 Excessive menstruation 11/24 Peptic ulcer 11/10/2007 FEM STRESS INCONTINENCE 08/12 Tension headache 08/27/2017 Hypopotassemia 11/10/2007 BENIGN HYPERTENSION 11/10/19 08 DM type 2, not at goal 05/17 HTN, goal below 140/90 06/16 Overview (06/16/2009): Modified per HTN Taxonomy. documented as of this encounter (statuses as of 11/09/2024) Immunizations Name Administration Dates Next Due COVID-19 mRNA, LNP-s, No Pre serve, 2-Dose Series (Pfizer) 04/05/2021,03/15/2021 COVID-19, LNP-s, No Preserve , Tom-sucrose, Ages 12+ (Pfizer) 03/26/2022,09/25/2021 Pneumococcal Conjugate Vacci ne, 20-valent ([id number]) 03/26/2022 Pneumococcal Polysaccharide PPV23 (Pneumovax) 04/28/2012,12/06/2010(Deferred: Patient [...] the money to buy more. 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 As pt is still having issues from her breast where she had surgery. stated that it did not have to be with Dr that did the surgery if needed but she is having pain and Dr Pisano would like her seen soon Please schedule pt documented in this encounter Plan of Treatment Upcoming Encounters Date Type Department Care Team (Late st Contact Info) Description 11/10/2024 2:00 PM EDT Hem/Onc Treatment Hematology/Oncology Treatment, [place] [address] [place] [phone] Gillian, Chair 3 Hem Onc Scen[address] [place] [address] 11/29/2024 9:30 AM EDT Laboratory Laboratory [address] [place] [phone] [place] [address] [place] [address] 11/30/2024 9:30 AM EDT Office Visit Hematology/Oncology [facility] [address] [place] [phone] Sudheer Pisano MD [address] [place] [address] 11/30/2024 10:00 AM EDT Hem/Onc Treatment Hematology/Oncology Treatment, [place] [address] [place] [phone] Gillian, Chair 8 Hem Onc Scenery [address] [facility] [place] [address] 01/13/2025 10:30 AM EDT Imaging Radiology [address] [place] [phone] 03/23/2025 9:30 AM EDT Office Visit Family Medicine [address] [place] [phone] Hannah Siegel[address] [place] [address] 08/01/2025 10:00 AM EST Imaging Radiology [address] [place] [address] 10/18/2025 9:00 AM EDT Office Visit General Surgery, [facility] [address] [place] [phone] Tatiana Horowitz MD [address] [place] [address] Scheduled Procedures Name Priority Associated Diagnoses Date/Ti [...] this encounter Medical Devices Implanted Type Area Postbed Stitcher Device Identifier Shelf Expiration Date Model / Serial / Lot Reflector Tameka Bender Machine Operator 7.5cm - [id number] Implanted:Qty: 1 on 09/22/[address] [facility] OUTPATIENT RX [facility] 04/28/2027 [id number] / / Port Implant W8f Poly Cath - [id number] Implanted:Qty: 1 on 10/15/2024 by Carroll Chowdhury MD at OR [facility] Right: Chest CR BARD : PERIPHERAL VASCULAR [id number] 10/08/2025 [id number] / / [id number] documented as of this encounter Advance Directives * Full Code (Latest Code Status on File) Date Activated Date Inactivated Comments 09/28/2024 6:30 AM 09/28/2024 3:13 PM This order r eflects the patients wishes and were consensually agreed upon. Question Answer Comments Discussion of Advance Directives occurred with: Patient Care Teams Psychological Aide Relationship Specialty Start Date End Date Hannah Siegel DO [address] [place] [address] [place] [address] PCP - General Internal Medicine 04/25/17 documented as of this encounter
--- OUTSIDE RECORDS SUMMARY | 2024-11-13 15:43 | External Medical Summary ---
Author Name Unknown Address Unknown Organization K01:LABORATORY [facility] - [address] [facility] [id number] Laboratory Report Ordering Provider Test Date Status PAWEL CABRALES 11/08/2024 10:04:13 Final Observation Date Value Abnormality Reference (Units ) Status SYNC LEUKOCYTES IN BLOOD BY AUTOMATED COUNT 11/08/2024 10:04:13 5.18 4.00-10.80 (K/uL) Final Segs 11/08/2024 10:04:13 52.5 40.0-75.0 (%) Final Lymphs % 11/08/2024 10:04:13 33.0 18.0-42.0 (%) Final Monos 11/08/2024 10:04:13 11.8 Above high normal 1.0-11.0 (%) Final Eosinophils 11/08/2024 10:04:13 0.2 0.0-6.0 (%) Final Basos 11/08/2024 10:04:13 1.9 0.0-2.0 (%) Final Immature Granulocyte, Percent 11/08/2024 10:04:13 0.6 0.0-2.0 (%) Final Absolute Segs 11/08/2024 10:04:13 2.72 1.80-7.70 (K/uL) Final Lymphs, absolute 11/08/2024 10:04:13 1.71 1.00-4.80 (K/ul) Final Monos, Abs 11/08/2024 10:04:13 0.61 0.00-1.10 (K/uL) Final Eos, Abs 11/08/2024 10:04:13 0.01 0.00-0.70 (K/uL) Final Basos, Abs 11/08/2024 10:04:13 0.10 0.00-0.20 (K/uL) Final Immature Granulocytes, Number 11/08/2024 10:04:13 0.03 0.00-0.20 (K/uL) Final Performing Location LABORATORY [facility] - [facility][note 3] [place] [address]
--- OUTSIDE RECORDS SUMMARY | 2024-11-13 15:43 | External Medical Summary | Summary of Care ---
Author Name Unknown Organization [facility] Address [address] [place] [address] Phone [phone] Care Team Providers Care Asparagus Buncher Name Role Phone Hannah Siegel Primary Care Provider [phone] Reason for Visit * Reason Comments Outpatient Testing Encounter Details Date Type Department Care Team (Late st Contact Info) Description 11/08/2024 10:30 AM EDT Laboratory Laboratory [address] [place] [phone] [place] [address] Malignant neoplasm of upper-outer quadrant of left breast in female, estrogen receptor negative (HCC) Allergies Active Allergy Reactions Criticality Noted Date Comments Amoxicillin 12/11/2000 [place] documented as of this encounter (statuses as of 11/08/2024) Medications Albuterol Sulfate HFA 108 (90 Base) [...] as of this encounter (statuses as of 11/08/2024) Active Problems Problem Noted Date Diagnosed Date [...] as of this encounter (statuses as of 11/08/2024) Resolved Problems Problem Noted Date Diagnosed Date [...] 01/30/2004 03/04/2018 Wheezing 11/01/2003 11/10/2007 LOC PRIM [id number] 01/28/200311/09 Morbid obesity, BMI not known 07/16/2002 08/16/2008 SPRAIN SHOULDER-ARM NEC 01/08/2002 04/0 08/2007 Excessive menstruation 11/24 Peptic ulcer 11/10/2007 FEM STRESS INCONTINENCE 08/12 Tension headache 08/27/2017 Hypopotassemia 11/10/2007 BENIGN HYPERTENSION 11/10/19 08 DM type 2, not at goal 05/17 HTN, goal below 140/90 06/16 Overview (06/16/2009): Modified per HTN Taxonomy. 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 Not on file Not on fi le documented as of this encounter Plan of Treatment Upcoming Encounters Date Type Department Care Team (Late st Contact Info) Description 11/09/2024 11:00 AM EDT Office Visit Hematology/Oncology [facility] [address] [place] [phone] Sduheer Pisano MD [address] [place] [address] 11/09/2024 11:30 AM EDT Hem/Onc Treatment Hematology/Oncology Treatment, [place] [address] [facility] [address] [place] [phone] Gillian, Chair [address] [place] [address] 01/13/2025 10:30 AM EDT Imaging Radiology [address] [place] [phone] 03/23/2025 9:30 AM EDT Office Visit Family Medicine [address] [phone] Hannah [address] [place] [address] 08/01/2025 10:00 AM EST Imaging Radiology [address] [place] [phone] 10/18/2025 9:00 AM EDT Office Visit General Surgery, [facility] [address] [place] [phone] Tatiana Horowitz MD [address] [place] [address] Pending Results Name Type Priority Associated Diagnoses Date /Time CBC WITH WBC DIFFERENTIAL Lab STAT Malignant neoplasm of upper-outer quadrant of left breast in female, estrogen receptor negative (HCC) 11/08/2024 10:04 AM EDT COMPREHENSIVE METABOLIC PANEL Lab STAT Malignant neoplasm of upper-outer quadrant of left breast in female, estrogen receptor negative (HCC) 11/08/2024 10:04 AM EDT CBC Lab STAT Malignant neoplasm of upper-outer quadrant of left breast in female, estrogen receptor negative (HCC) 11/08/2024 10:04 AM EDT DIFFERENTIAL, AUTOMATED Lab STAT Malignant neoplasm of upper-outer quadrant of left breast in female, estrogen receptor negative (HCC) 11/08/2024 10:04 AM EDT Scheduled Procedures Name Priority Associated Diagnoses Date/Ti me COLONOSCOPY FLEXIBLE PROXIMA L DIAGNOSTIC Recall History of colonic polyps Health Maintenance Due Date Last Done Comments Cologuard 2002 Sigmoidoscopy 2002 Fecal Occult Blood Test 02/25/2008 02/24/2007 Adult Wellness Visit 2023 COVID-19 Vaccine ( season) 2024 03/26/2022, 09/25/2021, 04/05/2021, Additional history exists Depression Monitoring 04/18/2024 04/18/2023 *NEPHROLOGY REFERRAL DUE TO RESISTANT HTN 09/17/2024 Diabetic Foot Exam 11/17/2024 11/18/2023, 0 10/03/2022, 09/25/2021, Additional history exists TSH 11/17/2024 11/18/2023, 04/12, 10/03/2022, Additional history exists HbA1c 01/27/2025 07/29/2024, 04/0 04/2024, 05/02/2023, Additional history exists Diabetic Eye Exam 03/25/2025 03/25/2024, , 07/26/2021, Additional history exists Albumin/Creatinine Ratio 07/29/2025 024, 05/02/2023, 03/26/2022, Additional history exists Mammogram 07/30/2025 07/30/2024, 07/11, 07/22/2023, Additional history exists GFR 10/20/2025 10/20/2024, 03/0 11/2024, 09/23/2024, Additional history exists Colonoscopy 11/23/2027 11/22/2022, 04/11, [...] this encounter Medical Devices Implanted Type Area Construction Foreman Device Identifier Shelf Expiration Date Model / Serial / Lot Reflector Tameka It Infrastructure Consultant 7.5cm - [id number] Implanted:Qty: 1 on 09/22/2024 at [facility] 04/28/2027 [id number] / / Port Implant W8f Poly Cath - [id number] Implanted:Qty: 1 on 10/15/2024 by Carroll Chowdhury MD at OR [facility] Right: Chest CR BARD : PERIPHERAL VASCULAR [id number] 10/08/2025 [id number] / / [id number] documented as of this encounter Visit Diagnoses Diagnosis Malignant neoplasm of upper-outer quadrant of left breast in female, estrogen receptor negative (HCC) documented in this encounter Advance Directives * Full Code (Latest Code Status on File) Date Activated Date Inactivated Comments 09/28/2024 6:30 AM 09/28/2024 3:13 PM This order r eflects the patients wishes and were consensually agreed upon. Question Answer Comments Discussion of Advance Directives occurred with: Patient Care Teams Asparagus Buncher Relationship Specialty Start Date End Date Hannah Siegel DO [address] [place] [address] [place] [address] PCP - General Internal Medicine 04/25/17 documented as of this encounter
--- OUTSIDE RECORDS SUMMARY | 2024-11-13 15:43 | External Medical Summary | Summary of Care ---
Author Name Unknown Organization [facility] Address [address] [place] [address] Phone [phone] Care Team Providers Care Care Trainer Name Role Phone Hannah Siegel Primary Care Provider Reason for Visit * Reason Onset Date Comments Follow Up 11/09/2024 Encounter Details Date Type Department Care Team (Late st Contact Info) Description 11/09/2024 Telephone Hematology/Oncology [facility] [address] [facility] [place] [phone] Sudheer Pisano MD 200 [place] [address] Follow Up Allergies Active Allergy Reactions Criticality [...] 01/30/2004 03/04/2018 Wheezing 11/01/2003 11/10/2007 LOC PRIM [id number] 01/28/200311/09 Morbid obesity, BMI not known 07/16/2002 [...] (Pfizer) 03/26/2022,09/25/2021 Pneumococcal Conjugate Vacci ne, 20-valent ([id number]) 03/26/2022 Pneumococcal Polysaccharide PPV23 (Pneumovax) 04/28/2012,12/06/2010(Deferred: Patient [...] 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 Not on file Not [...] 2:00 PM EDT Hem/Onc Treatment Hematology/Oncology Treatment, [place] [address] [place] [phone] Gillian, Chair 3 Hem Onc [address] [place] [address] 11/29/2024 9:30 AM EDT Laboratory Laboratory [address] [place] [phone] [place] [address] [place] [address] 11/30/2024 9:30 AM EDT Office Visit Hematology/Oncology [facility] [address] [place] [phone] Sudheer Pisano MD [address] [place] [address] 11/30/2024 10:00 AM EDT Hem/Onc Treatment Hematology/Oncology Treatment, [place] [address] [place] [phone] Gillian, Chair 8 Hem Onc [address] [address] [facility] [place] [address] 01/13/2025 10:30 AM EDT Imaging Radiology [address] [place] [phone] 03/23/2025 9:30 AM EDT Office Visit Family Medicine [address] [place] [phone] Hannah Siegel[address] [place] [address] 08/01/2025 10:00 AM EST Imaging Radiology [address] [place] [phone] 10/18/2025 9:00 AM EDT Office Visit General Surgery, [facility] [address] [place] [phone] Tatiana Horowitz MD [address] [place] [address] Scheduled Procedures Name Priority Associated Diagnoses Date/Ti [...] this encounter Medical Devices Implanted Type Area Stitching Department Supervisor Device Identifier Shelf Expiration Date Model / Serial / Lot Reflector Tameka Sr. Social Media & Mobile Manager 7.5cm - [id number] Implanted:Qty: 1 on 09/22/[address] [facility]PAT[facility] 04/28/2027 [id number] / / Port Implant W8f Poly Cath - [id number] Implanted:Qty: 1 on 10/15/2024 by Carroll Chowdhury MD at OR [facility] Right: Chest CR BARD : PERIPHERAL VASCULAR [id number] 10/08/2025 [id number] / / [id number] documented as of this encounter Advance Directives * Full Code (Latest Code Status on File) Date Activated Date Inactivated Comments 09/28/2024 6:30 AM 09/28/2024 3:13 PM This order r eflects the patients wishes and were consensually agreed upon. Question Answer Comments Discussion of Advance Directives occurred with: Patient Care Teams Care Trainer Relationship Specialty Start Date End Date Hannah Siegel DO [address] [place] [address] [place] [address] PCP - General Internal Medicine 04/25/17 documented as of this encounter
--- OUTSIDE RECORDS SUMMARY | 2024-11-13 15:43 | External Medical Summary ---
Author Name Unknown Address Unknown Organization [id number][facility] [place] [address] [facility] [address] Laboratory Report Ordering Provider Test Date Status PAWEL CABRALES 11/08/2024 10:04:13 Final Observation Date Value Abnormality Reference (Units ) Status BUN 11/08/2024 10:04:13 18 6-20 (mg/dL) Final Creatinine 11/08/2024 10:04:13 0.8 0.5-1.0 (mg/dL) Final Glomerular filtration rate/1.73 sq M.predicted [Volume Rate/Area] in Serum, Plasma or Blood by Creatinine-based formula (CKD-EPI) 11/08/2024 10:04:13 76 >=60 (mL/min) Final eGFR is calculated based on the CKD-EPI 2020 equation. Sodium 11/08/2024 10:04:13 142 135-146 (m mol/L) Final Potassium 11/08/2024 10:04:13 4.1 3.5-5.1 (m mol/L) Final Cl 11/08/2024 10:04:13 106 98-107 (mm ol/L) Final CO2 11/08/2024 10:04:13 22 22-32 (mmo l/L) Final Anion gap 11/08/2024 10:04:13 14 7-15 (mmol /L) Final Glucose 11/08/2024 10:04:13 124 Above high normal 70 -120 (mg/dL) Final Albumin 11/08/2024 10:04:13 4.0 3.8-5.0 (g /dL) Final AST (Aspartate aminotransferase) 11/08/2024 10:04:13 18 10-35 (U/L) Fin al Alk Phos 11/08/2024 10:04:13 72 35-130 (U/ L) Final Bilirubin, Total 11/08/2024 10:04:13 0.6 <=1 .2 (mg/dL) Final Calcium 11/08/2024 10:04:13 8.9 8.4-10.2 ( mg/dL) Final Protein 11/08/2024 10:04:13 5.8 Below low normal 6.0 -8.3 (g/dL) Final ALT (Alanine aminotransferase) 11/08/2024 10:04:13 28 10-35 (U/L) Bassam bermudez Performing Location [facility] [place] [address] [facility] [address]
--- OUTSIDE RECORDS SUMMARY | 2024-11-13 15:43 | External Medical Summary ---
Author Name Unknown Address Unknown Organization K01:[facility] [place] [address] [facility] [address] [place] [address] Laboratory Report Ordering Provider Test Date Status PAWEL CABRALES 11/08/2024 10:04:13 Final Observation Date Value Abnormality Reference (Units ) Status WBC, Total 11/08/2024 10:04:13 5.18 4.00-10.80 (K/uL) Final RBC 11/08/2024 10:04:13 4.45 3.85-5.15 (M/uL) Final Hemoglobin 11/08/2024 10:04:13 13.5 12.0-15.3 (g/dL) Final HCT 11/08/2024 10:04:13 43.0 36.0-45.2 (%) Final MCV 11/08/2024 10:04:13 96.6 81.5-97.5 (fL) Final MCH 11/08/2024 10:04:13 30.3 27.0-34.0 (pg) Final MCHC 11/08/2024 10:04:13 31.4 32.0-36.0 (g/dL) Final RDW 11/08/2024 10:04:13 14.1 11.5-15.5 (%) Final Platelets 11/08/2024 10:04:13 278 140-400 (K/uL) Final MPV 11/08/2024 10:04:13 11.4 6.6-11.1 (fL) Final Nucleated erythrocytes/100 leukocytes [Ratio] in Blood by Automated count 11/08/2024 10:04:13 0 <=0 (/100 WBCs) Final Performing Location [facility] [place] [address] [place] [address]
--- OUTSIDE RECORDS SUMMARY | 2024-11-13 15:43 | External Medical Summary | Summary of Care ---
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 Name Role Phone Hannah Siegel Primary Care Provider Reason for Visit * Reason Comments Chemotherapy Chemo/recheck Encounter Details Date Type Department Care Team (Late st Contact Info) Description 11/09/2024 11:00 AM EDT Office Visit Hematology/Oncology [facility] [address] [facility] [place] [phone] Sudheer Pisano MD [address] [place] [address] Malignant neoplasm of upper-outer quadrant of left breast in female, estrogen receptor negative (HCC)* Allergies Active Allergy Reactions Criticality Noted Date [...] hemoglobin A1c goal of less than 7.5% ([facility]) Take 1 Tablet by mouth in [...] 01/30/2004 03/04/2018 Wheezing 11/01/2003 11/10/2007 LOC PRIM [id number] 01/28/200311/09 Morbid obesity, BMI not known 07/16/2002 [...] (Pfizer) 03/26/2022,09/25/2021 Pneumococcal Conjugate Vacci ne, 20-valent ([id number]) 03/26/2022 Pneumococcal Polysaccharide PPV23 (Pneumovax) 04/28/2012,12/06/2010(Deferred: Patient [...] 06/08/2024 Does the household have a re lar source of income? 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 Not on file Not on fi le documented as of this encounter Last Filed Vital Signs Vital Sign Reading Time Taken Comments Blood Pressure 117/73 11/09/2024 10:47 AM EDT Pulse 67 11/09/2024 10:47 AM EDT Temperature 36.9 °C (98.4 °F) 11/09/2024 1 0:47 AM EDT Respiratory Rate - - Oxygen Saturation 93% 11/09/2024 10: 47 AM EDT Inhaled Oxygen Concentration - - Weight 114.6 kg (252 lb 9.6 oz) 025 10:47 AM EDT Height - - Body Mass Index 44.75 10/15/2024 10:55 AM EST documented in this encounter Progress Notes * Sudheer Pisano MD - 11/09/2024 11:00 AM EDT Hematology/Oncology Outpatient Consult Note [facility] Bartlett [place] [address] [place] [place] [address] NANDINI SAN MR # [id number] :1955 69-year-old female, Date of consultation:08/19/2024 DIAGNOSIS: Left breast upper outer quadrant two subcentimeter area of breast cancers -biopsy of the larger 7 mm mass is actually a lymph node which is having invasive breast cancer, triple negative. -genetic Clinic evaluation --> negative for known 70 genes. ( 08/25/2024) S/P lumpectomy and sentinel for biopsy on 09/28/2024: -multifocal disease, at least 2 foci measuring 16 mm and 6 mm, pathological T1c, 2 lymph nodes negative for metastases, all margins negative Left breast cellulitis following 1st cycle of chemotherapy around 10/26/2024, she received clindamycin. (she is allergic to penicillin). CURRENT TREATMENT: - Taxotere and cyclophosphamide. ( every 3 weekly x4). (started on 10/20/2024). 11/09/2024 --> she is here for cycle 2 chemotherapy Taxotere and cyclophosphamide. She is at high-risk for febrile neutropenia, she will receive prophylactic Pegfilgrastim following each treatment. DIAGNOSTIC WORKUP: Bilateral breast screening mammogram on 07/22/2023 --> Negative Bilateral breast screening mammogram on 07/29/2024 --> Left breast --> 2 focal abnormality inthe upper outer quadrant. - Right breast --> No suspicious findings noted. Left breast diagnostic mammogram sonogram on 07/30/2024: - 2 sub cm (7 mm and 4 mm) focal asymmetry is in the upper outer posterior quadrant. - no sonographic correlate A. Left breast, upper outer quadrant nodule posterior depth, needle core biopsy: (08/03/2024). -- Portion of possible lymph node with invasive carcinoma with basal phenotype. - biopsy consists of what appears to be a portion of a lymph node containing clusters of high-grademalignant cells that are strongly e-cadherin positive. - ER and AK receptor negative, her2/will--> Negative by IHC. Bilateral breast MRI on 08/26/2024: -left breast shows 3 enhancing lesions ( 9.3 x 9.5 x 17 mm correlates with the lymph node biopsy-proven metastatic carcinoma, 2 subcentimeter enhancing lesion anterior and posterior to the biopsy-proven lesion.) -no axillary or internal mammary lymphadenopathy. Right breast --> unremarkable. A. Left breast, upper outer quadrant nodule posterior depth, needle core biopsy: ( 08/03/2024). -- Portion of possible lymph node with invasive carcinoma with basal phenotype. -- See comment. Comment: The biopsy consists of what appears to be a portion of a lymph node containing clusters ofhigh-grade malignant cells that are strongly e-cadherin positive. The neoplastic cells weakly stainwith basal cell antibodies, which can be seen in triple negative carcinomas. Prognostic markers will be reported separately. -ER negative, AK negative, HER2 Will negative. She underwent lumpectomy and the sentinel lymph node biopsy by Dr. Horowitz on 09/28/2024: -final pathology showed multifocal invasive breast cancer, grade 3, high-grade DCIS noted, 2 foci noted measuring 16 mm and 6 mm, overall negative margin, 2 sentinel lymph nodes negative for metastatic disease. CT chest on 10/14/2024: 1. Scattered small pulmonary nodules, largest 5 mm in the left lower lobe, indeterminate. Correlatewith outside prior imaging, if available, otherwise short interval follow-up is recommended to ensure stability. 2. Partially imaged 6.6 cm fluid collection in the left breast, likely postoperative seroma. 3. Focal hypodense area T1 superior endplate, possibly developing Schmorl's node/degenerative change. Attention on follow-up CT. OTHER IMPORTANT HISTORY: - right knee DJD, she says that she may have to go for adjuvant replacement therapy in the future. She takes Aleve for the symptomatic treatment, sometimes Tylenol. -diabetes mellitus -hypothyroidism -hypertension -hyperlipidemia -GERD. INTERVAL HISTORY: She has come to the clinic for the follow-up, accompanied by her friend in the office. Following 1st cycle of chemotherapy, overall she has done quite well, she did receive prophylactic Pegfilgrastim, did not have significant bone pain, she did not take prophylactic Claritin, she was seen by radiation oncologist on 10/27/2023, found to have redness involving the left breast far away from the lumpectomy scar, involving 2/3 of the breast, she received clindamycin with improvement of the redness, no fever. No cardiac or pulmonary symptoms. No increasing nausea or vomiting. Has some mild tingling and numbness of the lower extremities but no similar symptoms upper extremity. No headache. Chronic right knee joint pain related underlying DJD. She takes NSAID for the symptomatic treatment. No bleeding from the sites. No increasing headache. Family history: -1 sister diagnosed with leukemia at the age of 6, she is 60 years old and doing well Another sister of metastatic ureter cancer. Past Medical History: Diagnosis Date Adult body mass index 40.0-44.9 12/06/2010 Allergic rhinitis Anxiety state 08/27/2017 Asthma Benign neoplasm of colon 12/12/2008 polyps x2 - hyperplastic and adenomatous - Dr. Castro, recommend f/u in 3-5 years Calcaneal spur 03/2006 left heel Chronic right-sided low back pain with right-sided sciatica Degeneration of cervical intervertebral disc 03/2008 Depression with anxiety 04/10/2015 Depressive disorder, not elsewhere classified 08/21/2011 DM type 2 causing eye disease ([facility]) 06/08/2009 Per Diabetes Taxonomy. ICD-10 update of inactive term DM type 2, not at goal ([facility]) 11/2006 hgba1c 7.0 Dyslipidemia, goal LDL below 160 Essential hypertension with goal blood pressure less than 140/90 08/19/2016 Excessive menstruation Female stress incontinence Stress Incontinence BLANCA (generalized anxiety disorder) HTN, goal below 130/80 08/10/2009 HTN, goal below 140/90 HTN, goal below 140/90 Hypopotassemia Motion sickness Obesity, Class III, BMI 40-49.9 (morbid obesity) ([facility]) 08/21/2011 Peptic ulcer PUD - Pt does not recall having this DX Persistent insomnia 12/28/2014 Primary localized osteoarthrosis, lower leg 01/28/2003 Primary osteoarthritis of both knees 04/01/2017 Rosacea 01/30/2004 Sprain and strain of other specified sites of shoulder and upper arm 01/08/2002 Tension headache Thoracic degenerative disc disease 08/19/2016 Type 2 diabetes mellitus with hemoglobin A1c goal of less than 7.0% ([facility]) 02/17/2017 Wheezing 11/01/2003 Past Surgical History: Procedure Laterality Date BIOPSY OF UTERUS LINING 09/1998 BREAST BIOPSY Right 2018 benign BX LYMPH NODE DEEP AXIL Left 09/28/2024 BIOPSY LYMPH NODE DEEP AXILLARY OPEN performed by Tatiana Horowitz MD at OR [facility] COLONOSCOPY W/ LESION REMOVAL, SNARE 12/12/08 done polyps x2 - hyperplastic and adenomatous - Dr. Castro, recommend f/u in 3-5 years COLONOSCOPY, DIAGNOSTIC (RECTUM) 03/12/2012 normal- repeat in 5 years. COLONOSCOPY, DIAGNOSTIC (RECTUM) 04/28/2017 diverticulosis, repeat 5 yrs/[facility] COLONOSCOPY, DIAGNOSTIC (RECTUM) N/A 11/22/2022 hemorrhoids/biopsies show adenomatous polyps/recall 5 years/Colonoscopy/[place] EXC BREAST LESION RADMARK Left 09/28/2024 EXCISION OF BREAST LESION RADIOLOGICAL MARKER performed by Tatiana Horowitz MD at OR [facility] IDENTIFY SENTINEL NODE, RADIOACTIVE TRACER Left 09/28/2024 INJECTION PROCEDURE FOR IDENTIFICATION SENTINEL NODE performed by Tatiana Horowitz MD at OR [facility] INSER TUNN ACC DEV;5 YRS/OLDER Right 10/15/2024 INSERT TUNNELED CENTRAL VENOUS ACCESS WITH SUBQ PORT performed by Carroll Chowdhury MD at OR [facility] KNEE ARTHROSCOPY/SURGERY Right 08/2013 LIGATE/CUT OVIDUCT(S) 05/1998 MAMMOGRAM BREAST NEEDLE BIOPSY CORE LEFT Left 08/03/2024 MASTECTOMY, PARTIAL Left 09/28/2024 MASTECTOMY PARTIAL performed by Tatiana Horowitz MD at OR [facility] REMOVAL OF TONSILS, AGE 12+ 1985 Tonsils Removal,12+ Y/O Current Outpatient Medications Medication Sig Dispense Refill Albuterol Sulfate HFA 108 (90 Base) MCG/ACT Inhalation Aerosol Solution Inhale 2 Puffs by mouth every 6 hours as needed for Shortness of Breath or Wheezing. (Patient not taking: Reported on 10/15/2024)18 g 11 Levothyroxine Sodium 50 MCG Oral Tablet (Levoxyl) Take 1 Tablet by mouth in the morning. (at least 30 min prior to breakfast or other meds). 90 Tablet 3 Atorvastatin Calcium 40 MG Oral Tablet (Lipitor) Take 1 Tablet by mouth in the morning. 90 Tablet 3 Citalopram Hydrobromide 20 MG Oral Tablet (CeleXA) Take 1 Tablet by mouth in the morning. 90 Tablet1 Naproxen Sodium 220 MG Oral Capsule (Aleve) Take 1 Capsule by mouth 2 times a day as needed for Pain, Moderate. Empagliflozin 10 MG Oral Tablet (Jardiance) Take 1 Tablet by mouth in the morning. 90 Tablet 3 Omeprazole 20 MG Oral Capsule Delayed Release (PriLOSEC) Take 1 Capsule by mouth in the morning. 1 hour before the first meal of the day. 90 Capsule 3 LORazepam 0.5 MG Oral Tablet (Ativan) Take 1 Tablet by mouth 2 times a day as needed for Anxiety orSleep. (Patient not taking: Reported on 10/15/2024) 60 Tablet 1 Losartan Potassium 25 MG Oral Tablet (Cozaar) Take 1 Tablet by mouth in the morning. 90 Tablet 1 Diclofenac Sodium 1 % External Gel (Voltaren) Apply topically to affected area 2 times a day. Applyto knee. 50 g 1 Ondansetron HCl 8 MG Oral Tablet (Zofran) Take 1 Tablet by mouth every 8 hours as needed for Nausea. (Patient not taking: Reported on 10/15/2024) 30 Tablet 2 Prochlorperazine Maleate 10 MG Oral Tablet (Compazine) Take 1 Tablet by mouth every 6 hours as needed for Nausea. (Patient not taking: Reported on 10/15/2024) 30 Tablet 3 dexAMETHasone 4 MG Oral Tablet (Decadron) Take 2 tablets (8mg) by mouth twice a day for 3 days starting the day prior to chemotherapy. (Patient not taking: Reported on 10/15/2024) 48 Tablet 0 Triamterene-HCTZ 37.5-25 MG Oral Tablet Take 1 Tablet by mouth in the morning. 30 Tablet 5 Potassium Chloride S[place]ane ER 20 MEQ Oral Tablet Extended Release Take 1 Tablet by mouth in the morning and 1 Tablet before bedtime. 180 Tablet 1 Loratadine 10 MG Oral Tablet (Claritin) TAKE 1 TABLET BY MOUTH FOR 5 DAYS STARTING THE DAY OF CHEMOTHERAPY. 20 Tablet 0 No current facility-administered medications for this visit. 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 Tobacco Use Smoking status: Never Smokeless tobacco: Never Vaping Use Vaping status: Never Used Substance and Sexual Activity Alcohol use: No Drug use: No Sexual activity: Not Currently Partners: Male Other Topics Concern Service Not Asked Blood Transfusions Not Asked Caffeine Concern Not Asked Occupational Exposure Not Asked Hobby Hazards Not Asked Sleep Concern Not Asked Stress Concern Not Asked Weight Concern Not Asked Special Diet Not Asked Back Care Not Asked Exercise No Bike Helmet Not Asked Seat Belt Not Asked Self-Exams No Comment: breast Social History Narrative Not on file Social Needs Financial Resource Strain: Low Risk (06/08/2024) Financial Resource Strain Do you have any trouble paying for your medications, or do you think you might in the future? (Adult - for ages 18 years and over): No Does your family have trouble paying for medicine? (Household - for ages 0-17 years): Not on file Food Insecurity: No Food Insecurity (06/08/2024) Food Insecurity Worried About Running Out of Food in the Last Year: Never true Ran Out of Food in the Last Year: Never true Do you need food for this week? (Adult - for ages 18 years and over): No Transportation Needs: No Transportation Needs (06/08/2024) Transportation Needs Do you have trouble getting a ride to medical visits or work? (Adult - for ages 18 years and over):Not on file Does your family have a hard time getting a ride to doctors’ visits? (Household - for ages 0-17 years): Not on file Has lack of transportation kept you from medical appointments, meetings, work, or from getting things needed for daily living? Check all that apply. (Adult - for ages 18 years and over): No Do you (or your family) have trouble finding or paying for a ride (transportation)? (Household - for ages 0-17 years): Not on file Social Connections: Socially Integrated (06/08/2024) Social Connections How often do you feel lonely or isolated from those around you? (Adult - for ages 18 years and over): Rarely Housing Stability: Low Risk (06/08/2024) Housing Stability Do you currently live in a assisted or have no steady place to sleep at night? (Adult - for ages 18 years and over): No Do you think you are at risk of becoming homeless? (Adult - for ages 18 years and over): Not on file Does your family worry about paying for your home or becoming homeless? (Household - for ages 0-17 years): Not on file Are you homeless or worried that you might be in the future? (Adult - for ages 18 years and over): No Are you (or your family) homeless or worried that you might be in the future? (Household - for ages0-17 years): Not on file On Exam: LMP 05/23/2006 BP 117/73 (BP Site: Left Arm, BP Position: Sitting, BP Cuff Size: Regular) | Pulse 67 | Temp 36.9 °C (98.4 °F) (Tympanic) | Wt 114.6 kg (252 lb 9.6 oz) | LMP 05/23/2006 | SpO2 93% | BMI 44.75 kg/m² | BSA 2.26 m² Constitutional: Patient is alert, cooperative and oriented x 3. Well built female, Patient is in noacute distress. HEENT: No icterus, no pallor, Throat and pharynx normal. Sinuses are non-tender. Neck: Supple and without lymphadenopathy or masses. No JVD. No Palpable supraclavicular lymph nodes. Lungs: Clear to auscultation. Bilateral symmetric air entry. No wheezing or rhonchi. Cardiovascular: Normal heart sounds, no murmurs.Regular rate and rhythm. Abdomen: Soft, nontender, no hepatomegaly, no splenomegaly. Bowel sounds are normal. Neurological: No gross focal neurological deficit; walks with a normal gait. Extremities: No finger clubbing, No cyanosis. No leg edema. Skin:: No skin rash. SPINE: No spinal or paraspinal tenderness. LABS: Blood workup done on 11/09/2024: -BUN/Creat: 18/0.8, Calcium 8.9, normal LFT -WBC 5100, Hemoglobin and hematocrit -13.5/43, Platelet count of 270,000. IMAGING: As described above. ASSESSMENT AND PLAN: 69-year-old female, a case of left breast upper outer quadrant, 2 subcentimeter areas of breast cancer measuring about 7 mm and 4 mm, biopsy from the 7 mm showed triple negative breast cancer and it also showed lymph orula tissue in the same sample suggest intramammary lymph node. She has had bilateral breast MRI followed by lumpectomy and sentinel node biopsy , pathology showed2 foci measuring 1.6 and the 0.6 cm, 2 lymph nodes negative, negative margin, Currently she is receiving adjuvant chemotherapy with Taxotere and cyclophosphamide received 1st cycle of chemotherapy, overall tolerated treatment well other than breast inflammation/infection of the left breast, she received clindamycin (she is allergic to penicillin). Redness of the left breast improved but now once again she started having similar symptoms but no fever. ( she has not started radiation treatment so far) I reviewed her blood workup done today, overall stable blood workup, no neutropenia. She did receive prophylactic Pegfilgrastim. Will proceed with 2nd cycle of chemotherapy Taxotere and cyclophosphamide as we planned She is at high-risk for febrile neutropenia, she will receive prophylactic Pegfilgrastim. Would like to have surgery follow-up regarding redness of the left breast lb from the lumpectomy site. Will see her back in about [address] Sudheer Pisano Hem/Onc (This note was completed using the dictation program Fluency Direct. As such, there may be misspellings word substitutions, or other variations that should not change the essence of the clinical content of this encounter note. If there is need for further clarification, please direct questions to the provider listed above.) documented in this encounter Nursing Notes * Judith Talbert CMA - 11/09/2024 10:48 AM EDT Patient identifed by name and birthdate Do you have any concerns about pain management for today's visit? Yes. Patient instructed to discuss pain concerns with provider during the visit today Living Will or Advance Directive for Health Care as noted on the problem list. [employer] is a way you can talk to your provider on line through e-mail. Would you like to sign up? I can activate it for you? ALREADY ACTIVE Filed Vitals: 11/09/24 1047 BP: 117/73 Pulse: 67 Temp: 36.9 °C (98.4 °F) TempSrc: Tympanic SpO2: 93% Weight: 114.6 kg (252 lb 9.6 oz) Patient was instructed to not get up on the exam table/exam chair until directed and assisted by their provider; patient is to remain seated in the chair/ wheelchair/ exam table/ exam chair for fall prevention and safety reasons. Patient is aware to have assistance to step down off exam table/exam chair with personnel. Patient voiced full comprehension of instructions. documented in this encounter Plan of Treatment Upcoming Encounters Date Type Department Care Team (Late st Contact Info) Description 11/10/2024 2:00 PM EDT Hem/Onc Treatment Hematology[facility]cology [facility], [facility] [address] [facility] [place] [phone] Gillian, Chair 3 Hem Onc Scenery [address] [place] [address] 11/29/2024 9:30 AM EDT Laboratory Laboratory [address] [place] [phone] [place], Lab [address] [place] [address] 11/30/2024 9:30 AM EDT Office Visit Hematology/Oncology [facility] [address] [place] [phone] Sudheer Pisano MD [address] [place] [address] 11/30/2024 10:00 AM EDT Hem/Onc Treatment Hematology/Oncology Treatment, [place] [address] [facility] [place] [phone] Gillian, Chair 8 Hem Onc Scenery [address] [place] [address] 01/13/2025 10:30 AM EDT Imaging Radiology [address] [place] [phone] 03/23/2025 9:30 AM EDT Office Visit Family Medicine [address] [place] [phone] Hannah Siegel[address] [place] [address] 08/01/2025 10:00 AM EST Imaging Radiology [address] [place] [phone] 10/18/2025 9:00 AM EDT Office Visit General Surgery, [facility] [place] [address] [place] [phone] Tatiana Horowitz MD [address] [place] [address] Scheduled Procedures Name Priority Associated Diagnoses Date/Ti [...] this encounter Medical Devices Implanted Type Area Stitcher Utility Device Identifier Shelf Expiration Date Model / Serial / Lot Reflector Tameka Foiling Machine Adjuster 7.5cm - [id number] Implanted:Qty: 1 on 09/22/2024 at [facility] 04/28/2027 [id number] / / Port Implant W8f Poly Cath - [id number] Implanted:Qty: 1 on 10/15/2024 by Carroll Chowdhury MD at OR [facility] Right: Chest CR BARD : PERIPHERAL VASCULAR [id number] 10/08/2025 [id number] / / [id number] documented as of this encounter Visit Diagnoses Diagnosis Malignant neoplasm of upper-outer quadrant of left breast in female, estrogen receptor negative (HCC)- Primary documented in this encounter Advance Directives * Full Code (Latest Code Status on File) Date Activated Date Inactivated Comments 09/28/2024 6:30 AM 09/28/2024 3:13 PM This order r eflects the patients wishes and were consensually agreed upon. Question Answer Comments Discussion of Advance Directives occurred with: Patient Care Teams Ground Service Equipment Mechanic Relationship Specialty Start Date End Date Hannah Siegel DO [address] [place] [address] [place] [phone] PCP - General Internal Medicine 04/25/17 documented as of this encounter"
--- OUTSIDE RECORDS SUMMARY | 2024-11-13 15:43 | External Medical Summary | Summary of Care ---
Author Name Unknown Organization [facility] Address [address] [place] [address] Phone [phone] Care Team Providers Care Reconciler Name Role Phone Hannah Siegel Primary Care Provider Reason for Visit * Reason Onset Date Comments Follow Up 11/09/2024 Encounter Details Date Type Department Care Team (Late st Contact Info) Description 11/09/2024 Telephone Hematology/Oncology [facility] [address] [facility] [place] [phone] Sudheer Pisano MD [address] [facility] [place] [address] Follow Up Allergies Active Allergy Reactions Criticality [...] 01/30/2004 03/04/2018 Wheezing 11/01/2003 11/10/2007 LOC PRIM [id number] 01/28/200311/09 Morbid obesity, BMI not known 07/16/2002 [...] (Pfizer) 03/26/2022,09/25/2021 Pneumococcal Conjugate Vacci ne, 20-valent ([id number]) 03/26/2022 Pneumococcal Polysaccharide PPV23 (Pneumovax) 04/28/2012,12/06/2010(Deferred: Patient [...] 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 Not on [...] 2:00 PM EDT Hem/Onc Treatment Hematology/Oncology Treatment, [place] [address] [place] [phone] Gillian, Chair 3 Hem Onc Scenery [address] [place] [address] 11/29/2024 9:30 AM EDT Laboratory Laboratory [address] [place] [phone] [phone] [place] [address] [place] [address] 11/30/2024 9:30 AM EDT Office Visit Hematology/Oncology [facility] [address] [place] [phone] Sudheer Pisano MD [address] [place] [address] 11/30/2024 10:00 AM EDT Hem/Onc Treatment Hematology/Oncology Treatment, [place] [address] [place] [phone] Gillian, Chair 8 Hem Onc Scenery [address] [facility] [place] [address] 01/13/2025 10:30 AM EDT Imaging Radiology [address] [place] [address] 03/23/2025 9:30 AM EDT Office Visit Family Medicine [address] [place] [phone] Hannah Siegel[address] [place] [address] 08/01/2025 10:00 AM EST Imaging Radiology [address] [place] [address] 10/18/2025 9:00 AM EDT Office Visit General Surgery, [facility] [address] [place] [phone] Tatiana Horowitz MD [address] [place] [address] Scheduled Procedures Name Priority Associated Diagnoses Date/Ti [...] this encounter Medical Devices Implanted Type Area Research Program Assistant Device Identifier Shelf Expiration Date Model / Serial / Lot Reflector Tameka Last Code Striper 7.5cm - [id number] Implanted:Qty: 1 on 09/22/2024 at [facility] 04/28/2027 [id number] / / Port Implant W8f Poly Cath - [id number] Implanted:Qty: 1 on 10/15/2024 by Carroll Chowdhury MD at OR [facility] Right: Chest CR BARD : PERIPHERAL VASCULAR [id number] 10/08/2025 [id number] / / [id number] documented as of this encounter Advance Directives * Full Code (Latest Code Status on File) Date Activated Date Inactivated Comments 09/28/2024 6:30 AM 09/28/2024 3:13 PM This order r eflects the patients wishes and were consensually agreed upon. Question Answer Comments Discussion of Advance Directives occurred with: Patient Care Teams Reconciler Relationship Specialty Start Date End Date Hannah Siegel DO [address] [place] [address] [place] [address] PCP - General Internal Medicine 04/25/17 documented as of this encounter
--- NOTE | 2024-11-13 16:22 | Emergency Department Note ---
Impression & Plan Acute pain of right hip ED Provider Note NAME: OSMAN JADE AGE: 69 SEX: Female INFORMANT: Patient ED PROVIDER(S): Carlo Alexander MD CHIEF COMPLAINT: Right hip pain PLAN: Disposition: Admitted Outpatient prescription management: none Referral: None MEDICAL DECISION MAKING: Patient presented because of worsening right hip pain she is been unable to ambulate well and had to call ambulance today. She does not being able to bear weight. X-rays done a week ago did not reveal any acute process. Patient denies any new trauma. Examination did not reveal any signs of infection. Pain seems to be isolated to the anterior lateral aspect of the right hip. Nothing to indicate sciatica. No neurologic compromise noted. She underwent CT imaging and this was negative. Patient did feel somewhat better with Dilaudid. Patient was reassessed. She was got out of bed by nursing and did not do well. She does not feel comfortable putting weight on the leg due to discomfort and does not feel comfortable going home. [facility] Case discussed and diagnostics were reviewed. I did order MRI as recommended by radiology. [facility] did ask for orthopedic consultation. Did discuss the case with Dr. Vickers. He agreed with the conservative management and MR imaging. No surgical intervention recommended. Patient was evaluated in the ER admitted for further management Care/management discussed with: mutual fund manager, orthopedics, hospitalist Level of care consideration(s): After review of the information above and other included data, I feel the patient requires escalation of care to admission Triage Nursing notes: reviewed and agree them. Vital Signs: reviewed and remarkable for no significant abnormalities Additional History obtained from: none Chronic Medical/Social Conditions affecting care: Breast cancer Prior/ Outside/ External records reviewed: none Differential Diagnosis: Fracture, dislocation, metastatic disease, ligamental strain, neurovascular compromise, compartment syndrome, soft tissue injury, inflammatory conditions, infection, as well as other pathologies. Diagnostics, independently interpreted by me: ECG: none Cardiac Monitoring: none Medical decision rules: none Imaging studies: CT imaging of the right hip reveals no evidence of acute fracture or dislocation. No obvious metastatic disease. HPI: 69 year old Female arrives for evaluation of right hip pain. This started about 1 week ago and is worsening. The patient also notes the following associated symptoms, difficulty bearing weight and walking on the right hip. Patient notes he got severe today and could not ambulate. She called the ambulance.. The patient has found no relieving factors. Current pain is rated as 8/10. Patient does have a history of breast cancer and is undergoing chemotherapy. Pt denies LOC, fever, chills neck pain, chest pain, breathing difficulties, nausea, vomiting, abdominal pain, back pain, extremity pain, numbness, weakness, open wounds, active bleeding, or other complaints. PAST MEDICAL HISTORY: Breast cancer, see below PAST SURGICAL HISTORY: See Below, SOCIAL HISTORY: See Below, non-smoker HOME MEDICATIONS: See Below ALLERGIES: See Below VITALS: See Below PHYSICAL EXAMINATION: GENERAL: Awake, alert, uncomfortable-appearing, in no distress HENT: Normocephalic, atraumatic. Oropharynx unremarkable. EYES: Normal conjunctiva. Sclera non-icteric. NECK: Inspection normal. Non-tender. Supple. No nuchal rigidity. FROM. No masses. RESPIRATORY: Clear to auscultation. No wheezes. No rales. Normal respiratory effort. CARDIAC: Normal rate. Normal rhythm. No murmurs. No rubs. Extremities warm and well perfused. Pulses equal. No JVD. GI: Soft, non-distended. No tenderness to palpation. No rebound or guarding. No masses. No hernias RECTAL: Deferred. MUSCULOSKELETAL: Atraumatic. Chest examination reveals no tenderness. The back is symmetrical on inspection without obvious abnormality. There is no CVA tenderness to palpation. No joint edema. LOWER EXTREMITIES: Calves are equal size bilaterally and non-tender. No edema. No discoloration. Examination of the right hip reveals no evidence of erythema or swelling. There is tenderness to the anterolateral aspect. Range of motion with internal/external rotation is normal. Patient has pain with forward flexion. Knee reveals some discomfort but no sign of erythema or instability. Remainder of right lower extremity is neurovascular intact. NEURO: Normal sensorium. No sensory or motor deficits noted. SKIN: No rash or jaundice noted. No saddle anesthesia PROCEDURES: none CRITICAL CARE: none OBSERVATION NOTE: none Past Med/Surg History Problem List (Updated 11/13/24 @ 16:22 by Carlo Alexander MD) Acute pain of right hip (Acute) Hip pain (Acute) Malignant neoplasm of upper-outer quadrant of left breast in female, estrogen receptor negative (Chronic 08/03/24) Encounter for pre-operative examination Medical History (Updated 11/13/24 @ 16:22 by Carlo Alexander MD) Rosacea Stress incontinence Degeneration of cervical intervertebral disc Benign neoplasm of colon GERD (gastroesophageal reflux disease) Hypothyroidism Diabetes Osteoarthritis Anxiety History of COVID-19 >1 yr ago-mild cold symptoms, loss of taste and smell; resolved Morbid obesity Depression Asthma mild/stable; rarely uses inhaler Hyperlipidemia Hypertension Surgical History (Updated 10/26/24 @ 08:46 by Saima Williamson, [place]) H/O arthroscopic knee surgery Right knee Hx of LASIK Both eyes S/P lumpectomy, left breast With left axillary LN biopsy on 09/28/24 Dr. Horowitz History of colonoscopy History of endometrial biopsy History of tubal ligation History of tonsillectomy Family History (Updated 10/26/24 @ 08:55 by Saima Williamson, RN) Mother , 94yo Hypertension Diabetes Aortic valve replaced Arthritis Father , 54yo Cerebral aneurysm Stroke Hypertension Brother Skin cancer, basal cell Brother No problems noted. Brother Arthritis Hypertension Sister Ureter cancer Hypertension Sister No problems noted. 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 How many Children do You have: 0 Feels Safe at Home: Yes Diet: regular caffeine: Yes (1-2 cups/day) during the past year weight has: decreased > 10 lbs Assistive Devices: Walker Allergies Allergies Allergy/AdvReac Type Severity Reaction Status Date / Time amoxicillin Allergy Intermediate HIVES Verified 10/26/24 08:38 Home Meds Home Medications Medication Instructions Recorded Confirmed albuterol sulfate 90 mcg/actuation 2 puff inhalation Q6H PRN ASTHMA 10/26/24 11/13/24 aerosol inhaler atorvastatin 40 mg tablet 40 mg PO DAILY 10/26/24 11/13/24 citalopram 20 mg tablet 20 mg PO DAILY 10/26/24 11/13/24 diclofenac sodium 1 % topical gel 2 g topical BID PRN Pain 10/26/24 11/13/24 (Arthritis Pain (diclofenac)) empagliflozin 10 mg tablet 10 mg PO DAILY 10/26/24 11/13/24 (Jardiance) levothyroxine 50 mcg capsule 50 mcg PO DAILY 10/26/24 11/13/24 loratadine 10 mg capsule (Allergy 10 mg PO DAILY PRN chemo 10/26/24 11/13/24 Relief (loratadine)) lorazepam 0.5 mg tablet 0.5 mg PO BID PRN Other 10/26/24 11/13/24 losartan 25 mg tablet 25 mg PO DAILY 10/26/24 11/13/24 naproxen sodium 220 mg capsule 220 mg PO BID PRN Pain 10/26/24 11/13/24 (Aleve) omeprazole 20 mg capsule,delayed 20 mg PO DAILY 10/26/24 11/13/24 release ondansetron HCl 8 mg tablet 8 mg PO Q8H PRN n/v 10/26/24 11/13/24 potassium chloride 20 mEq 20 meq PO BID 10/26/24 11/13/24 tablet,extended release triamterene 37.5 1 tab PO DAILY 10/26/24 11/13/24 mg-hydrochlorothiazide 25 mg tablet dexamethasone 4 mg tablet 8 mg PO BID 11/06/24 11/13/24 prochlorperazine maleate 10 mg 10 mg PO Q6H PRN n/v 11/06/24 11/13/24 tablet Results & Data (ED) Vital Signs Vital Signs - 24 hr 11/13/24 15:42 11/13/24 16:02 11/13/24 18:15 Temperature 36.9 C Temperature Source Oral Pulse Rate 76 78 Pulse Rate [Left Finger] 78 Pulse Rhythm Regular Pulse Strength Normal Respiratory Rate 20 20 Respiratory Effort / Characteristics Non-Labored Spontaneous Respiratory Depth Normal Respiratory Pattern Regular Blood Pressure 124/95 Blood Pressure [Left Arm] 149/99 H Blood Pressure Mean 104 Blood Pressure Mean [Left Arm] 115 Blood Pressure Position Lying Pulse Oximetry 98 98 Oxygen Delivery Method Room Air Sepsis Recent Fever Within 48 Hours No Sepsis New/Unexplained Change in Mental Status No Sepsis Action Taken by Nursing No Action Required Laboratory Data 11/13/24 16:28 11/13/24 16:28 Lab Results 11/13/24 Range/Units 16:28 WBC 4.49 L (4.8-10.8) K/ul RBC 4.35 (4.20-5.40) M/uL Hgb 13.2 (12.0-16.0) g/dl Hct 39.8 (37.0-47.0) % MCV 91.5 (80.0-100.0) fL MCH 30.3 (25.0-34.0) pg MCHC 33.2 (32.0-36.0) g/dL RDW Std Deviation 46.4 H (36.4-46.3) fL RDW Coeff of Ami 14.3 (11.5-14.5) % Plt Count 126 L (130-400) K/uL MPV 11.9 (9.4-12.4) fL Neutrophils % (Manual) 89 % Lymphocytes % (Manual) 10 % Eosinophils % (Manual) 1 % Neutrophils # (Manual) 4.00 (1.40-6.50) K/uL Total Absolute Neuts 4.00 (1.4-6.5) K/uL Lymphocytes # (Manual) 0.45 L (1.2-3.4) K/uL Total Abs Lymphocytes 0.45 L (1.2-3.4) K/uL Eosinophils # (Manual) 0.04 (0-0.50) K/uL Sodium Cancelled Potassium Cancelled Chloride Cancelled Carbon Dioxide Cancelled Anion Gap Cancelled BUN Cancelled Creatinine Cancelled Est Cr Clr Drug Dosing Cancelled eGFR Cancelled BUN/Creatinine Ratio Cancelled Glucose Cancelled Calcium Cancelled Total Bilirubin Cancelled AST Cancelled ALT Cancelled Alkaline Phosphatase Cancelled Total Protein Cancelled Albumin Cancelled Globulin Cancelled Albumin/Globulin Ratio Cancelled Administered Medications Hydromorphone HCl (Hydromorphone Inj 0.5 Mg/0.5 Ml Syr) 0.5 mg IV Q20M PRN PRN Reason: Severe Pain (Rating 7,8,9,10) Stop: 11/27/24 16:16 Last Admin: 11/13/24 16:32 Dose: 0.5 mg Documented By: NAPAKIAK Discontinued Medications Ondansetron HCl (Ondansetron Inj 2 Mg/Ml 2 Ml Vial) 4 mg IV NOW STA Stop: 11/13/24 16:18 Last Admin: 11/13/24 16:34 Dose: 4 mg Documented By: NAPAKIAK Imaging Data Radiologist's Impression: Hip CT 11/13/24 16:17 Exam: CT right hip without contrast. History: Severe hip pain. History of breast cancer. Technique: Routine axial noncontrast CT images of the right hip with sagittal and coronal reconstructions without contrast were obtained and reviewed. Comparison: Plain film correlate 06 November 2024. Findings: [employer] film demonstrates no acute abnormality. Soft tissue windows demonstrate small right hip joint effusion. Periarticular soft tissues are within normal limits. Bone windows demonstrate likely small bone island intertrochanteric femur. Mild productive osteophytes of the acetabulum. Ossification of the anterior acetabular labrum. No occult fracture. Impression: Chronic changes with small joint effusion. No occult fracture. Consider MRI. Electronically signed by Nick Beatty 11-13-2024 5:17 PM Discharge Plan Visit Data Chief Complaint: Hip Pain ED Provider: Carlo Alexander Discharge Problem: Acute pain of right hip Forms Stand Alone Forms: [facility] [employer] Prescriptions Prescriptions: No Action naproxen sodium [Aleve] 220 mg capsule 220 mg PO BID PRN (Reason: Pain) citalopram 20 mg tablet 20 mg PO DAILY atorvastatin 40 mg tablet 40 mg PO DAILY diclofenac sodium [Arthritis Pain (diclofenac)] 1 % gel 2 g topical BID PRN (Reason: Pain) Rx Instructions: apply to single elbow, wrist or hand; for hand includes palm/fingers/back of hand Jardiance 10 mg tablet 10 mg PO DAILY levothyroxine 50 mcg capsule 50 mcg PO DAILY Allergy Relief (loratadine) 10 mg capsule 10 mg PO DAILY PRN (Reason: chemo) lorazepam 0.5 mg tablet 0.5 mg PO BID PRN (Reason: Other) losartan 25 mg tablet 25 mg PO DAILY omeprazole 20 mg capsule,delayed release(DR/EC) 20 mg PO DAILY ondansetron HCl 8 mg tablet 8 mg PO Q8H PRN (Reason: n/v) potassium chloride 20 mEq tablet extended release 20 meq PO BID triamterene-hydrochlorothiazid 37.5-25 mg tablet 1 tab PO DAILY albuterol sulfate 90 mcg/actuation HFA aerosol inhaler 2 puff INHALATION Q6H PRN (Reason: ASTHMA) Patient Comments: LAST USE MONTHS AGO prochlorperazine maleate 10 mg tablet 10 mg PO Q6H PRN (Reason: n/v) dexamethasone 4 mg tablet 8 mg PO BID Rx Instructions: For 3 days starting the day prior to chemotherapy Referrals Referrals: Hannah Siegel DO [Primary Care Provider] -
[2024-11-13] MEDS: HYDROmorphone INJ 0.5 MG/0.5 ML SYR IV PRN (16:32)
[2024-11-13] MEDS: ONDANSETRON INJ 2 MG/ML 2 ML VIAL IV STA (16:34)
[2024-11-13 17:06] LABS: Hematocrit (blood only) 39.8 % (37.0-47.0); Hemoglobin 13.2 g/dl (12.0-16.0); Mean Corpuscular Hemoglobin 30.3 pg (25.0-34.0); Mean Corpuscular Hgb Conc 33.2 g/dL (32.0-36.0); Mean Corpuscular Volume 91.5 fL (80.0-100.0); Mean Platelet Volume 11.9 fL (9.4-12.4); Platelet Count 126 K/uL (130-400); RDW Coefficient of Variation 14.3 % (11.5-14.5); RDW Standard Deviation 46.4 fL (36.4-46.3); Red Blood Count 4.35 M/uL (4.20-5.40); White Blood Count 4.49 K/ul (4.8-10.8)
--- NOTE | 2024-11-13 17:17 | CT Scan Report ---
Exam: CT right hip without contrast. History: Severe hip pain. History of breast cancer. Technique: Routine axial noncontrast CT images of the right hip with sagittal and coronal reconstructions without contrast were obtained and reviewed. Comparison: Plain film correlate 06 November 2024. Findings: [employer] film demonstrates no acute abnormality. Soft tissue windows demonstrate small right hip joint effusion. Periarticular soft tissues are within normal limits. Bone windows demonstrate likely small bone island intertrochanteric femur. Mild productive osteophytes of the acetabulum. Ossification of the anterior acetabular labrum. No occult fracture. Impression: Chronic changes with small joint effusion. No occult fracture. Consider MRI. Electronically signed by Nick Beatty 11-13-2024 5:17 PM
[2024-11-13 17:32] LABS: ALC (manual) 0.45 K/uL (1.2-3.4); Eosinophils # (manual) 0.04 K/uL (0-0.50); Eosinophils % (manual) 1 %; Lymphocytes # (manual) 0.45 K/uL (1.2-3.4); Lymphocytes % (manual) 10 %; Neutrophils % (manual) 89 %
--- NOTE | 2024-11-13 18:59 | History & Physical Report ---
Date of Service November 13, 2024 Assessment & Plan (1) Acute pain of right hip: (2) Malignant neoplasm of upper-outer quadrant of left breast in female, estrogen receptor negative: Plan Pt is a 69yoF with PMHx significant for breast cancer, OA of both knees, asthma, type 2 diabetes, hypertension, hyperlipidemia, asthma, depression who presents for reevaluation of right-sided hip pain. Hip Pain, right XR right hip noting mild to moderate hip joint space loss CT hip noting small joint effusion MRI hip pending Ortho consult Pain control prn with bowel regimen PT/OT Hypokalemia replete as needed Breast cancer, left triple negative s/p lumpectomy, receiving adjuvant chemotherapy with Taxotere and cyclophosphamide Follows with [facility] Heme/onc Dr lo DMII Holding home jardiance ISS Thrombocytopenia Mild, 126K Possibly in setting of chemo Continue to monitor at this time Continue other home meds as ordered Diet: DMII DVT prophylaxis: SCDs Dispo: admit to med/surg History of Present Illness Chief Complaint: hip pain Primary Care Provider: Hannah Siegel, Pt is a 69yoF with PMHx significant for breast cancer, OA of both knees, asthma, type 2 diabetes, hypertension, hyperlipidemia, asthma, depression who presents for reevaluation of right-sided hip pain. States that she has been dealing with this right-sided hip pain more recently after having right-sided knee pain that she was told cannot be operated on until she loses weight. States around the same time she was also diagnosed with breast cancer. Is currently undergoing chemotherapy for that. States she was evaluated in the emergency room last week for hip pain and was discharged with 4 doses of oxycodone which she states helped at that time. She was told that she would have additional medication prescribed but she ended up getting the medication later than anticipated and noted it provided no significant relief. So she is presenting once more for reevaluation. In the ED she had a CT scan which did not show an acute cause but did note of a joint effusion. Per ED provider, case was discussed with orthopedics who recommended an MRI and admission and PT OT if MRI unremarkable. Allergies Allergy/AdvReac Type Severity Reaction Status Date / Time amoxicillin Allergy Intermediate HIVES Verified 10/26/24 08:38 Home Medications Medication Instructions Recorded Confirmed Type albuterol sulfate 90 mcg/actuation 2 puff inhalation Q6H PRN ASTHMA 10/26/24 11/13/24 History aerosol inhaler atorvastatin 40 mg tablet 40 mg PO DAILY 10/26/24 11/13/24 History citalopram 20 mg tablet 20 mg PO DAILY 10/26/24 11/13/24 History diclofenac sodium 1 % topical gel 2 g topical BID PRN Pain 10/26/24 11/13/24 History (Arthritis Pain (diclofenac)) empagliflozin 10 mg tablet 10 mg PO DAILY 10/26/24 11/13/24 History (Jardiance) levothyroxine 50 mcg capsule 50 mcg PO DAILY 10/26/24 11/13/24 History loratadine 10 mg capsule (Allergy 10 mg PO DAILY PRN chemo 10/26/24 11/13/24 History Relief (loratadine)) lorazepam 0.5 mg tablet 0.5 mg PO BID PRN Other 10/26/24 11/13/24 History losartan 25 mg tablet 25 mg PO DAILY 10/26/24 11/13/24 History naproxen sodium 220 mg capsule 220 mg PO BID PRN Pain 10/26/24 11/13/24 History (Aleve) omeprazole 20 mg capsule,delayed 20 mg PO DAILY 10/26/24 11/13/24 History release ondansetron HCl 8 mg tablet 8 mg PO Q8H PRN n/v 10/26/24 11/13/24 History potassium chloride 20 mEq 20 meq PO BID 10/26/24 11/13/24 History tablet,extended release triamterene 37.5 1 tab PO DAILY 10/26/24 11/13/24 History mg-hydrochlorothiazide 25 mg tablet dexamethasone 4 mg tablet 8 mg PO BID 11/06/24 11/13/24 History prochlorperazine maleate 10 mg 10 mg PO Q6H PRN n/v 11/06/24 11/13/24 History tablet Past Med/Surg History Problem List (Updated 11/13/24 @ 16:22 by Carlo Alexander MD) Acute pain of right hip (Acute) Hip pain (Acute) Malignant neoplasm of upper-outer quadrant of left breast in female, estrogen receptor negative (Chronic 08/03/24) Encounter for pre-operative examination Medical History (Updated 11/13/24 @ 16:22 by Carlo Alexander MD) Rosacea Stress incontinence Degeneration of cervical intervertebral disc Benign neoplasm of colon GERD (gastroesophageal reflux disease) Hypothyroidism Diabetes Osteoarthritis Anxiety History of COVID-19 >1 yr ago-mild cold symptoms, loss of taste and smell; resolved Morbid obesity Depression Asthma mild/stable; rarely uses inhaler Hyperlipidemia Hypertension Surgical History (Updated 10/26/24 @ 08:46 by Saima Williamson, RN) H/O arthroscopic knee surgery Right knee Hx of LASIK Both eyes S/P lumpectomy, left breast With left axillary LN biopsy on 09/28/24 Dr. Horowitz History of colonoscopy History of endometrial biopsy History of tubal ligation History of tonsillectomy Family History (Updated 10/26/24 @ 08:55 by Saima Williamson, RN) Mother , 94yo Hypertension Diabetes Aortic valve replaced Arthritis Father , 54yo Cerebral aneurysm Stroke Hypertension Brother Skin cancer, basal cell Brother No problems noted. Brother Arthritis Hypertension Sister Ureter cancer Hypertension Sister No problems noted. 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 No acute distress Skin: No noted rashes or bruises Psych: Appropriate mood and affect HEENT: NC/AT CV: RRR, Resp: Breath sounds decreased bilaterally, no increased effort of breathing Abdomen: Soft, nontender MSK: Pt with pain with direct palpation over lateral hip Extremities: edema in LLE>RLE Results & Data Results & Data Vital Signs (Past 12 Hours) Vital Signs Temp Pulse Pulse Resp BP BP Pulse Ox 11/13/24 18:15 78 20 149/99 H 98 11/13/24 16:02 78 11/13/24 15:42 36.9 C 76 20 124/95 98 O2 Del Method 11/13/24 18:15 11/13/24 16:02 11/13/24 15:42 Room Air Diagnostic Findings Hip CT 11/13/24 16:17 Exam: CT right hip without contrast. History: Severe hip pain. History of breast cancer. Technique: Routine axial noncontrast CT images of the right hip with sagittal and coronal reconstructions without contrast were obtained and reviewed. Comparison: Plain film correlate 06 November 2024. Findings: Acid Plant Helper film demonstrates no acute abnormality. Soft tissue windows demonstrate small right hip joint effusion. Periarticular soft tissues are within normal limits. Bone windows demonstrate likely small bone island intertrochanteric femur. Mild productive osteophytes of the acetabulum. Ossification of the anterior acetabular labrum. No occult fracture. Impression: Chronic changes with small joint effusion. No occult fracture. Consider MRI. Electronically signed by Nick Beatty 11-13-2024 5:17 PM
[2024-11-13 20:45] LABS: Albumin Level 3.6 gm/dl (3.4-5.0); BUN Creatinine Ratio 37.8 (10-20); Bilirubin,Total 1.5 mg/dl (0.2-1.0); Creatinine Clr Calc Pharmacy 159.6 ml/min; Globulin 1.8 gm/dl (2.5-4.0); Potassium 3.2 mmol/L (3.5-5.1); Total Protein 5.4 gm/dl (6.0-8.3)
--- NOTE | 2024-11-13 21:02 | Magnetic Resonance Report ---
EXAM: MR hip RT wo con CLINICAL HISTORY: intractable R hip pain TECHNIQUE: MRI of the hip joint was performed without intravenous contrast administration. Sequences obtained include coronal T1-weighted, T2-weighted, STIR (Short Tau Inversion Recovery), axial T1-weighted, and T2-weighted sequences. COMPARISON: CT study 11.13.2024 was reviewed. FINDINGS: diffuse osteopenia mounting to lytic configuration seen on CT images, corresponding to bilateral pelvic bones, femoral heads and proximal femoral shafts foci of high T1/T2 and depressed on STIR signal intensities corresponding to FAT signal. Articular Structures: Hip joint alignment and morphology are normal. mild joint effusion. Articular cartilage appears intact without focal defects. Labrum: Labrum is intact without evidence of tears or detachment. Normal morphology and signal intensity. Femoral Head and Neck: Normal morphology of the femoral head and neck. No evidence of avascular necrosis. Acetabulum: Acetabular shape and depth are within normal limits. No evidence of acetabular labral tear or impingement. Muscles and Tendons: Hip muscles and tendons demonstrate normal signal intensity without evidence of tears or tendinopathy. Normal appearance of the iliopsoas tendon, gluteal muscles, and piriformis muscle. Soft Tissues: No evidence of soft tissue masses or abnormalities adjacent to the hip joint. Normal appearance of the hip joint capsule and surrounding fat planes. Vascular Structures: Normal appearance of the femoral artery and vein without evidence of vascular anomalies. IMPRESSION: 1. The marrow changes are likely of marked osteopenia/porosis than being of marrow infiltrative disease, e.g; plasma cell dyscrasia, yet laboratory correlation is recommended. 2. Mild joint effusion. There is AVN of the right medial femoral head. Electronically signed by Jose Miguel Sosa 11-13-2024 9:01 PM
[2024-11-13] MEDS ORDERED: LORazepam 0.5 MG TAB PO PRN (21:18)
[2024-11-13] MEDS ORDERED: CARBOHYDRATES FOR HYPOGLYCEMIA PO PRN (21:18)
[2024-11-13] MEDS ORDERED: DEXTROSE 50% 50 ML SYRINGE IV PRN (21:18)
[2024-11-13] MEDS ORDERED: GLUCOSE 10 TAB/TUBE PO PRN (21:18)
[2024-11-13] MEDS ORDERED: POLYETHYLENE (MIRALAX) 17 GM PACK PO PRN (21:18)
[2024-11-13] MEDS ORDERED: ALBUTEROL HFA 8 GM INHALER INH PRN (21:18)
[2024-11-13] MEDS ORDERED: GLUCOSE 40% GEL 15 GM TUBE PO PRN (21:18)
[2024-11-13] MEDS ORDERED: GLUCAGON FOR INJ 1 MG VIAL SQ PRN (21:18)
[2024-11-13] MEDS: DOCUSATE SODIUM 100 MG CAP PO SCH (21:48)
[2024-11-13] MEDS: ACETAMINOPHEN 500 MG TAB PO SCH (21:48)
[2024-11-13] MEDS: POTASSIUM CHLORIDE CRTAB 20 MEQ TABCR PO SCH (21:48)
[2024-11-13] MEDS: INSULIN ASPART PER UNIT CHARGE SC SCH (21:57)
[2024-11-13] MEDS: POTASSIUM CHLORIDE CRTAB 20 MEQ TABCR PO STA (22:58)
[2024-11-14] MEDS: HYDROmorphone INJ 0.5 MG/0.5 ML SYR IV PRN (02:28)
[2024-11-14] MEDS: ONDANSETRON INJ 2 MG/ML 2 ML VIAL IV PRN (02:28)
[2024-11-14] MEDS: LEVOTHYROXINE SODIUM 50 MCG TABLET PO SCH (05:34)
[2024-11-14 06:10] LABS: Albumin Globulin Ratio 1.9 (0.9-2); Albumin Level 3.3 gm/dl (3.4-5.0); BUN Creatinine Ratio 32.1 (10-20); Bilirubin,Total 1.2 mg/dl (0.2-1.0); Creatinine Clr Calc Pharmacy 135.4 ml/min; Globulin 1.7 gm/dl (2.5-4.0); Magnesium 1.9 mg/dl (1.7-2.4); Phosphorus 3.1 mg/dl (2.5-4.9); Potassium 3.9 mmol/L (3.5-5.1)
[2024-11-14 06:42] LABS: ALC (manual) 0.48 K/uL (1.2-3.4); ANC (manual) 1.02 K/uL (1.4-6.5); Eosinophils # (manual) 0.03 K/uL (0-0.50); Eosinophils % (manual) 2 %; Hematocrit (blood only) 36.4 % (37.0-47.0); Hemoglobin 11.7 g/dl (12.0-16.0); Lymphocytes # (manual) 0.48 K/uL (1.2-3.4); Lymphocytes % (manual) 31 %; Mean Corpuscular Hemoglobin 29.8 pg (25.0-34.0); Mean Corpuscular Hgb Conc 32.1 g/dL (32.0-36.0); Mean Corpuscular Volume 92.9 fL (80.0-100.0); Mean Platelet Volume 11.6 fL (9.4-12.4); Monocytes # (manual) 0.02 K/uL (0.11-0.59); Monocytes % (manual) 1 %; Neutrophils # (manual) 1.02 K/uL (1.40-6.50); Neutrophils % (manual) 66 %; Platelet Count 81 K/uL (130-400); Platelet Estimate Decreased (Normal); RDW Coefficient of Variation 14.4 % (11.5-14.5); RDW Standard Deviation 47.5 fL (36.4-46.3); Red Blood Count 3.92 M/uL (4.20-5.40); White Blood Count 1.55 K/ul (4.8-10.8)
[2024-11-14 08:08] LABS: Estimated Average Glucose 160 mg/dl; Hemoglobin A1C 7.2 % (4.5-5.6)
[2024-11-14] MEDS: PANTOprazole 40 MG TAB PO SCH (08:23)
[2024-11-14] MEDS: TRIAMTERENE/HCTZ 37.5/25MG TAB PO SCH (08:29)
[2024-11-14] MEDS: CITALOPRAM 20 MG TAB PO SCH (08:29)
[2024-11-14] MEDS: LOSARTAN POTASSIUM 25 MG TAB PO SCH (08:29)
[2024-11-14] MEDS: ATORVASTATIN 40 MG TAB PO SCH (08:29)
--- NOTE | 2024-11-14 10:10 | Orthopedic Consultation ---
Date of Consultation November 14, 2024 Assessment & Plan (1) Hip pain: I discussed the MRI findings with the patient. Agree with the radiologist that she appears to have a small area of avascular necrosis on the medial femoral head that is likely responsible for her intermittent severe hip pain. This is a nonweightbearing portion of the joint and only a very small portion of the femoral head is involved. Low suspicion for an infiltrative process such as metastasis of her breast cancer to her hip. However recommend oncology consultation for possible additional workup such as PET scan, laboratories for multiple myeloma etc. Pain management per the hospitalist team. For avascular necrosis, no surgery is indicated at this time as there is no evidence of collapse, she is currently receiving chemo and radiation, and her current BMI is also too high for surgery. If her oncology workup is negative for cancer in her hip and she is still having hip pain despite appropriate medical management, hip replacement might be a consideration once she has completed her chemo and radiation and has lost weight to be a candidate for that operation. PT OT for evaluation and management. From an orthopedic standpoint she can discharge once appropriate placement is determined and oncologic work-up is complete. Follow-up with Dr. Mcfadden after discharge regarding her right hip pain and avascular necrosis. Orthopedic surgery will sign off. (2) Malignant neoplasm of upper-outer quadrant of left breast in female, estrogen receptor negative: (3) Morbid obesity: (4) Avascular necrosis of bone of right hip: History of Present Illness Attending Physician: Maximus Siu MD History of Present Illness 69-year-old female, medical history significant for recent diagnosis of breast cancer status postlumpectomy and currently undergoing chemotherapy and radiation. Patient states she has 2 treatments left of chemo and radiation. She sees Dr. Sabillon in orthopedics who is seen her for her right knee in the past. She has osteoarthritis diagnosis but has been told she needs to lose weight in order to be a candidate for surgery. She reports that her right hip started hurting her in July. Denies any trauma at the time. Since then she has had episodes where it hurts severely she has difficulty walking, however other times she is fine. She recently came into the emergency room about a week ago for her right hip and got some oxycodone. Yesterday, she returned to the emergency room, and was admitted to the internal medicine service for her right hip pain. Orthopedics was consulted regarding her right hip. Patient was seen and examined on the floor. She states that when it hurts it is in the lateral aspect of the hip. She denies any significant back pain. Denies numbness or tingling down her leg. Denies any history of heavy alcohol use other than rarely in her 20s. Has on rare occasion taken oral steroids. PMHx significant for breast cancer, OA of both knees, asthma, type 2 diabetes, hypertension, hyperlipidemia, asthma, depression Allergies Allergy/AdvReac Type Severity Reaction Status Date / Time amoxicillin Allergy Intermediate HIVES Verified 10/26/24 08:38 Home Medications Medication Instructions Recorded Confirmed Type albuterol sulfate 90 mcg/actuation 2 puff inhalation Q6H PRN ASTHMA 10/26/24 11/13/24 History aerosol inhaler atorvastatin 40 mg tablet 40 mg PO DAILY 10/26/24 11/13/24 History citalopram 20 mg tablet 20 mg PO DAILY 10/26/24 11/13/24 History diclofenac sodium 1 % topical gel 2 g topical BID PRN Pain 10/26/24 11/13/24 History (Arthritis Pain (diclofenac)) empagliflozin 10 mg tablet 10 mg PO DAILY 10/26/24 11/13/24 History (Jardiance) levothyroxine 50 mcg capsule 50 mcg PO DAILY 10/26/24 11/13/24 History loratadine 10 mg capsule (Allergy 10 mg PO DAILY PRN chemo 10/26/24 11/13/24 History Relief (loratadine)) lorazepam 0.5 mg tablet 0.5 mg PO BID PRN Other 10/26/24 11/13/24 History losartan 25 mg tablet 25 mg PO DAILY 10/26/24 11/13/24 History naproxen sodium 220 mg capsule 220 mg PO BID PRN Pain 10/26/24 11/13/24 History (Aleve) omeprazole 20 mg capsule,delayed 20 mg PO DAILY 10/26/24 11/13/24 History release ondansetron HCl 8 mg tablet 8 mg PO Q8H PRN n/v 10/26/24 11/13/24 History potassium chloride 20 mEq 20 meq PO BID 10/26/24 11/13/24 History tablet,extended release triamterene 37.5 1 tab PO DAILY 10/26/24 11/13/24 History mg-hydrochlorothiazide 25 mg tablet dexamethasone 4 mg tablet 8 mg PO BID 11/06/24 11/13/24 History prochlorperazine maleate 10 mg 10 mg PO Q6H PRN n/v 11/06/24 11/13/24 History tablet Patient History Medical History Rosacea Stress incontinence Degeneration of cervical intervertebral disc Benign neoplasm of colon GERD (gastroesophageal reflux disease) Hypothyroidism Diabetes Osteoarthritis Anxiety History of COVID-19 >1 yr ago-mild cold symptoms, loss of taste and smell; resolved Morbid obesity Depression Asthma mild/stable; rarely uses inhaler Hyperlipidemia Hypertension Surgical History H/O arthroscopic knee surgery Right knee Hx of LASIK Both eyes S/P lumpectomy, left breast With left axillary LN biopsy on 09/28/24 Dr. Horowitz History of colonoscopy History of endometrial biopsy History of tubal ligation History of tonsillectomy Family History Mother , 94yo Hypertension Diabetes Aortic valve replaced Arthritis Father , 54yo Cerebral aneurysm Stroke Hypertension Brother Skin cancer, basal cell Brother No problems noted. Brother Arthritis Hypertension Sister Ureter cancer Hypertension Sister No problems noted. 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 Alert and oriented x 3. Right hip exam reveals the skin to be intact in the entirety of the right lower extremity. She is able to do a straight leg raise. She tolerates hip flexion up to 100 degrees. External rotation is 55 degrees, internal rotation 30 degrees. Negative Stinchfield test. She fires EHL, FHL, tibialis anterior, gastrocsoleus, quadriceps, and hamstrings without difficulty. Sensory intact to light touch L3-S1 dermatomes. Results & Data Vital Signs (Past 12 Hours) Vital Signs Temp Pulse Resp BP Pulse Ox O2 Del Method 11/14/24 07:05 36.9 C 71 16 113/69 97 Room Air Diagnostic Findings Hip CT 11/13/24 16:17 Exam: CT right hip without contrast. History: Severe hip pain. History of breast cancer. Technique: Routine axial noncontrast CT images of the right hip with sagittal and coronal reconstructions without contrast were obtained and reviewed. Comparison: Plain film correlate 06 November 2024. Findings: Enrollment Counselor film demonstrates no acute abnormality. Soft tissue windows demonstrate small right hip joint effusion. Periarticular soft tissues are within normal limits. Bone windows demonstrate likely small bone island intertrochanteric femur. Mild productive osteophytes of the acetabulum. Ossification of the anterior acetabular labrum. No occult fracture. Impression: Chronic changes with small joint effusion. No occult fracture. Consider MRI. Electronically signed by Nick Beatty 11-13-2024 5:17 PM Hip MRI 11/13/24 18:23 EXAM: MR hip RT wo con CLINICAL HISTORY: intractable R hip pain TECHNIQUE: MRI of the hip joint was performed without intravenous contrast administration. Sequences obtained include coronal T1-weighted, T2-weighted, STIR (Short Tau Inversion Recovery), axial T1-weighted, and T2-weighted sequences. COMPARISON: CT study 11.13.2024 was reviewed. FINDINGS: diffuse osteopenia mounting to lytic configuration seen on CT images, corresponding to bilateral pelvic bones, femoral heads and proximal femoral shafts foci of high T1/T2 and depressed on STIR signal intensities corresponding to FAT signal. Articular Structures: Hip joint alignment and morphology are normal. mild joint effusion. Articular cartilage appears intact without focal defects. Labrum: Labrum is intact without evidence of tears or detachment. Normal morphology and signal intensity. Femoral Head and Neck: Normal morphology of the femoral head and neck. No evidence of avascular necrosis. Acetabulum: Acetabular shape and depth are within normal limits. No evidence of acetabular labral tear or impingement. Muscles and Tendons: Hip muscles and tendons demonstrate normal signal intensity without evidence of tears or tendinopathy. Normal appearance of the iliopsoas tendon, gluteal muscles, and piriformis muscle. Soft Tissues: No evidence of soft tissue masses or abnormalities adjacent to the hip joint. Normal appearance of the hip joint capsule and surrounding fat planes. Vascular Structures: Normal appearance of the femoral artery and vein without evidence of vascular anomalies. IMPRESSION: 1. The marrow changes are likely of marked osteopenia/porosis than being of marrow infiltrative disease, e.g; plasma cell dyscrasia, yet laboratory correlation is recommended. 2. Mild joint effusion. There is AVN of the right medial femoral head. Electronically signed by Jose Miguel Sosa 11-13-2024 9:01 PM (1) Hip pain Laterality: right Qualified Code(s): M25.551 - Pain in right hip
--- NOTE | 2024-11-14 12:27 | Hospitalist Progress Note ---
Date of Service November 14, 2024 Assessment & Plan (1) Acute pain of right hip: (2) Malignant neoplasm of upper-outer quadrant of left breast in female, estrogen receptor negative: Plan 69yoF with PMHx significant for breast cancer, OA of both knees, asthma, type 2 diabetes, hypertension, hyperlipidemia, asthma, depression who presents for reevaluation of right-sided hip pain. She reports intermittent severe right hip pain affecting her activities of daily living. She is being managed for the following: Hip Pain, right XR right hip noting mild to moderate hip joint space loss CT hip noting small joint effusion MRI hip - small area of avascular necrosis on the medial femoral head Ortho evaled, recs are onco eval for malignancy and chemo related causes of AVN, c/w pain Mx, f/u w/ ortho as OP, no Sx Ix for now. Pain control prn with bowel regimen PT/OT f/u w/ oncology on dc for w/u for oncology w/u. F/u w/ ortho on DC. Recommended wt loss. Pancytopenia: WBC 1.55, hemoglobin 11.7, platelets 81K. Patient received her chemotherapy last Friday which could be the reason for pancytopenia. Will continue to monitor. No signs and symptoms of acute infection at the moment. Hypokalemia: Monitor replete. 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 Follows with [facility]/onc Dr teresita MOTLEY Holding home jardiance ISS Chronic medical conditions: Continue other home meds as ordered. A1c 7.2, c/w ssi while inpatient. Diet: DMII DVT prophylaxis: SCDs/thrombocytopenia. Dispo: admit to med/surg Admission and Anticipated Discharge Date Admission Date: November 13, 2024 Subjective Patient remains patient is seen and examined at bedside. Patient was lying in bed, on room air, NAD, resting comfortably. Patient reports right hip pain affecting her activities of daily living. Patient denies any viral illness, any bowel or bladder incontinence. Patient recently had chemotherapy on last Friday. Physical Exam Physical Exam: General: Alert, oriented. No acute distress Skin: No noted rashes or bruises Psych: Appropriate mood and affect HEENT: NC/AT CV: RRR, Resp: Breath sounds decreased bilaterally, no increased effort of breathing Abdomen: Soft, nontender MSK: Pt with no pain with direct palpation over lateral hip, Occasional tender ROM. Extremities: No BLE edema. Results & Data Results & Data Vital Signs (Past 12 Hours) Vital Signs Temp Pulse Resp BP Pulse Ox O2 Del Method 11/14/24 11:46 Room Air 11/14/24 07:05 36.9 C 71 16 113/69 97 Room Air
[2024-11-15] MEDS: oxyCODONE HCL IR 5 MG TAB (IMMEDIATE RELEASE) PO PRN (08:27)
[2024-11-15 08:32] LABS: Hematocrit (blood only) 35.3 % (37.0-47.0); Hemoglobin 11.8 g/dl (12.0-16.0); Mean Corpuscular Hemoglobin 31.1 pg (25.0-34.0); Mean Corpuscular Hgb Conc 33.4 g/dL (32.0-36.0); Mean Corpuscular Volume 93.1 fL (80.0-100.0); Platelet Count 60 K/uL (130-400); RDW Standard Deviation 47.4 fL (36.4-46.3); Red Blood Count 3.79 M/uL (4.20-5.40)
[2024-11-15 08:37] LABS: Anion Gap 2 (3-11); Blood Urea Nitrogen 15 mg/dl (6-23); Calcium 8.4 mg/dl (8.6-10.3); Carbon Dioxide 32 mmol/L (21-32); Chloride 105 mmol/L (98-107); Creatinine Clr Calc Pharmacy 111.7 ml/min; Glucose 115 mg/dl (70-99(Fasting)); Magnesium 1.8 mg/dl (1.7-2.4); Sodium 139 mmol/L (136-145)
[2024-11-15 08:38] LABS: Basophils # (auto) 0.01 K/uL (0.00-0.20); Basophils % (auto) 1.3 %; Eosinophils # (auto) 0.05 K/uL (0.00-0.50); Eosinophils % (auto) 6.5 %; Lymphocytes # (auto) 0.53 K/uL (1.20-3.40); Lymphocytes % (auto) 68.8 %; Monocytes # (auto) 0.09 K/uL (0.11-0.59); Monocytes % (auto) 11.7 %; Neutrophils # (auto) 0.09 K/uL (1.40-6.50); Neutrophils % (auto) 11.7 %; White Blood Count 0.77 K/ul (4.8-10.8)
--- NOTE | 2024-11-15 15:47 | Hospitalist Progress Note ---
Date of Service November 15, 2024 Assessment & Plan (1) Acute pain of right hip: (2) Malignant neoplasm of upper-outer quadrant of left breast in female, estrogen receptor negative: Plan 69yoF with PMHx significant for breast cancer, OA of both knees, asthma, type 2 diabetes, hypertension, hyperlipidemia, asthma, depression who presents for reevaluation of right-sided hip pain. She reports intermittent severe right hip pain affecting her activities of daily living. She is being managed for the following: Hip Pain, right XR right hip noting mild to moderate hip joint space loss CT hip noting small joint effusion MRI hip - small area of avascular necrosis on the medial femoral head Ortho evaled, recs are onco eval for malignancy and chemo related causes of AVN, c/w pain Mx, f/u w/ ortho as OP, no Sx Ix for now. Pain control prn with bowel regimen: ruddy tylenol, ruddy diclofenac gel, heat pad, prn opiates. PT/OT f/u w/ oncology on dc for w/u for oncology w/u. F/u w/ ortho on DC. Recommended wt loss. Pancytopenia: Patient received her cycle 2 chemotherapy Taxotere and cyclophosphamide on 11/09/24 and also received Pegfilgrastim. WBC downtrending, institute neutropenic precation, Will continue to monitor. No signs and symptoms of acute infection at the moment. Hypokalemia: Monitor replete. 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 Follows with [facility]/onc Dr teresita MOTLEY Holding home jardiance ISS Chronic medical conditions: Continue other home meds as ordered. A1c 7.2, c/w ssi while inpatient. Diet: DMII DVT prophylaxis: SCDs/thrombocytopenia. Dispo: admit to med/surg Admission and Anticipated Discharge Date Admission Date: November 13, 2024 Subjective Patient remains patient is seen and examined at bedside. Patient was lying in bed, on room air, NAD, resting comfortably. Patient reports right hip pain affecting her activities of daily living, it comes intermittently as debilitating pain. Patient denies any viral illness, any bowel or bladder incontinence. Patient recently had chemotherapy on last Friday11/09/24 Physical Exam Physical Exam: General: Alert, oriented. No acute distress Skin: No noted rashes or bruises Psych: Appropriate mood and affect HEENT: NC/AT CV: RRR, Resp: Breath sounds decreased bilaterally, no increased effort of breathing Abdomen: Soft, nontender MSK: Pt with no pain with direct palpation over lateral hip, Occasional tender ROM. Extremities: No BLE edema. Results & Data Results & Data Vital Signs (Past 12 Hours) Vital Signs Temp Pulse Pulse Resp BP BP Pulse Ox 11/15/24 14:14 36.9 C 97 H 16 132/80 132/79 94 11/15/24 11:34 36.7 C 84 17 100/65 96 11/15/24 07:35 36.7 C 75 16 120/76 97 O2 Del Method 11/15/24 14:14 Room Air 11/15/24 11:34 Room Air 11/15/24 07:35 Room Air
[2024-11-15] MEDS: POTASSIUM CHLORIDE CRTAB 20 MEQ TABCR PO STA (15:48)
[2024-11-15] MEDS: DICLOFENAC SOD 1% GEL 100 GM TUBE EXT SCH (17:41)
[2024-11-16 06:42] LABS: Hematocrit (blood only) 36.1 % (37.0-47.0); Hemoglobin 11.9 g/dl (12.0-16.0); Mean Corpuscular Hemoglobin 30.4 pg (25.0-34.0); Mean Corpuscular Volume 92.1 fL (80.0-100.0); Mean Platelet Volume 12.5 fL (9.4-12.4); Platelet Count 63 K/uL (130-400); RDW Coefficient of Variation 13.9 % (11.5-14.5); RDW Standard Deviation 46.1 fL (36.4-46.3); Red Blood Count 3.92 M/uL (4.20-5.40); White Blood Count 0.87 K/ul (4.8-10.8)
[2024-11-16 07:04] LABS: Basophils # (auto) 0.02 K/uL (0.00-0.20); Basophils % (auto) 2.3 %; Eosinophils # (auto) 0.05 K/uL (0.00-0.50); Eosinophils % (auto) 5.7 %; Immature Granulocytes # (auto) 0.02 K/uL (0.01-0.20); Immature Granulocytes % (auto) 2.4 %; Lymphocytes # (auto) 0.55 K/uL (1.20-3.40); Lymphocytes % (auto) 63.2 %; Monocytes # (auto) 0.23 K/uL (0.11-0.59); Monocytes % (auto) 26.4 %
[2024-11-16 07:15] VITALS: RESP 16
[2024-11-16 08:12] LABS: BUN Creatinine Ratio 26.7 (10-20); Calcium 8.8 mg/dl (8.6-10.3); Creatinine Clr Calc Pharmacy 111.7 ml/min; Potassium 3.7 mmol/L (3.5-5.1)
--- NOTE | 2024-11-16 13:50 | Hospitalist Progress Note ---
Date of Service November 16, 2024 Assessment & Plan (1) Acute pain of right hip: (2) Malignant neoplasm of upper-outer quadrant of left breast in female, estrogen receptor negative: Plan 69yoF with PMHx significant for breast cancer, OA of both knees, asthma, type 2 diabetes, hypertension, hyperlipidemia, asthma, depression who presents for reevaluation of right-sided hip pain. She reports intermittent severe right hip pain affecting her activities of daily living. She is being managed for the following: Hip Pain, right XR right hip noting mild to moderate hip joint space loss CT hip noting small joint effusion MRI hip wo con- small area of avascular necrosis on the medial femoral head Ortho evaled, recs are onco eval for malignancy and chemo related causes of AVN, c/w pain Mx, f/u w/ ortho as OP, no Sx Ix for now. Pain control prn with bowel regimen: ruddy tylenol, ruddy diclofenac gel, heat pad, prn opiates. Not much improvement, consult pain mx. Will get MRI rt hip w/ iv con to ro mets. PT/OT f/u w/ oncology on dc for w/u for further oncology w/u. F/u w/ ortho on DC. Recommended wt loss. Pancytopenia: Patient received her cycle 2 chemotherapy Taxotere and cyclophosphamide on 11/09/24 and also received Pegfilgrastim. WBC downtrending, c/w neutropenic precation, Will continue to monitor. No signs and symptoms of acute infection at the moment. Trends cbc w/ diff, d/w oncology over phone, no new rec. Hypokalemia: Monitor replete. 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 Follows with [facility]/onc Dr teresita MOTLEY Holding home jardiance ISS Chronic medical conditions: Continue other home meds as ordered. A1c 7.2, c/w ssi while inpatient. Diet: DMII DVT prophylaxis: SCDs/thrombocytopenia. Dispo: admit to med/surg Admission and Anticipated Discharge Date Admission Date: November 13, 2024 Subjective Patient remains patient is seen and examined at bedside. Patient was lying in bed, on room air, NAD, resting comfortably. Patient reports right hip pain affecting her activities of daily living, it comes intermittently as debilitating pain. No change in her symptoms. Will consult pain Mx. d/w pt's oncology over the phone, will get MRI w/ iv con to ro mets. Patient denies any viral illness, any bowel or bladder incontinence. Patient recently had chemotherapy on last Friday11/09/24 Physical Exam Physical Exam: General: Alert, oriented. No acute distress Skin: No noted rashes or bruises Psych: Appropriate mood and affect HEENT: NC/AT CV: RRR, Resp: Breath sounds decreased bilaterally, no increased effort of breathing Abdomen: Soft, nontender MSK: Pt with no pain with direct palpation over lateral hip, Occasional tender ROM. Extremities: No BLE edema. Results & Data Results & Data Vital Signs (Past 12 Hours) Vital Signs Temp Pulse Resp BP Pulse Ox O2 Del Method 11/16/24 07:12 36.6 C 84 16 135/82 96 Room Air
[2024-11-16] MEDS: GADOBUTROL 65ML VIAL IV ONE (20:25)
--- NOTE | 2024-11-16 23:03 | Magnetic Resonance Report ---
Exam(s): MRI RIGHT HIP W/WO Contrast IV Amt: 11.5ml gadavist EXAM: MR Right Lower Extremity Without and With Intravenous Contrast, Hip CLINICAL HISTORY: Reason for exam: ro metastases. TECHNIQUE: Multiplanar magnetic resonance images of the right hip without and with intravenous contrast. CONTRAST: Patient received 11.5ml gadavist of IV contrast COMPARISON: 11/13/2024 MRI FINDINGS: Somewhat heterogeneous marrow signal but no focal suspicious lesion. No acute fracture. No joint effusion. No soft tissue implant to or adenopathy. No acute myotendinous abnormality. No free fluid or fluid collection in the pelvis. IMPRESSION: No evidence of metastatic disease. Electronically signed by: Noah Gutierrez MD 11/16/24 23:02 PM
[2024-11-17 06:25] LABS: Hematocrit (blood only) 35.3 % (37.0-47.0); Hemoglobin 11.8 g/dl (12.0-16.0); Mean Corpuscular Hemoglobin 30.3 pg (25.0-34.0); Mean Corpuscular Hgb Conc 33.4 g/dL (32.0-36.0); Mean Corpuscular Volume 90.5 fL (80.0-100.0); Mean Platelet Volume 12.3 fL (9.4-12.4); Nucleated RBC # (auto) 0.03 K/uL (0.00-0.12); Platelet Count 69 K/uL (130-400); RDW Coefficient of Variation 13.8 % (11.5-14.5); RDW Standard Deviation 44.9 fL (36.4-46.3); White Blood Count 2.96 K/ul (4.8-10.8)
[2024-11-17 06:36] LABS: BUN Creatinine Ratio 18.6 (10-20); Calcium 8.9 mg/dl (8.6-10.3); Creatinine Clr Calc Pharmacy 113.6 ml/min; Magnesium 1.5 mg/dl (1.7-2.4); Potassium 3.9 mmol/L (3.5-5.1)
[2024-11-17 07:14] LABS: Basophils # (auto) 0.09 K/uL (0.00-0.20); Dohle Bodies 1+; Eosinophils # (auto) 0.05 K/uL (0.00-0.50); Eosinophils % (auto) 1.7 %; Immature Granulocytes # (auto) 0.11 K/uL (0.01-0.20); Immature Granulocytes % (auto) 3.7 %; Lymphocytes # (auto) 0.72 K/uL (1.20-3.40); Lymphocytes % (auto) 24.3 %; Monocytes # (auto) 0.87 K/uL (0.11-0.59); Monocytes % (auto) 29.4 %; Neutrophils # (auto) 1.12 K/uL (1.40-6.50); Neutrophils % (auto) 37.9 %
--- NOTE | 2024-11-17 09:05 | Pain Management Consultation ---
Date of Consultation November 17, 2024 Assessment & Plan (1) Hip pain: Laterality: right Qualified Code(s): M25.551 - Pain in right hip (2) Acute pain of right hip: (3) Avascular necrosis of bone of right hip: (4) Malignant neoplasm of upper-outer quadrant of left breast in female, estrogen receptor negative: (5) Morbid obesity: Plan 1. Patient with primary complaint of mechanical right hip pain of suspected intra-articular pathology with MRI findings suggesting avascular necrosis. Would defer to Ortho regarding her candidacy for interventional treatment/SUKUMAR. Will investigate her potential candidacy for a right sided articular branch of the femoral and obturator nerve block/RFA treatment pathway should she continue to be a poor candidate for orthopedic intervention. This can be considered in the outpatient setting pending her ability to safely pursue from oncology/hematology standpoint. 2. Will initiate celecoxib 100 mg twice daily. Side effects versus benefits discussed. Order placed. 3. Consider transitioning the patient from citalopram to duloxetine in an attempt to further augment pain control 4. Patient to continue with as needed use of Oxy IR. She was encouraged to consider use of Oxy IR prior to any planned activities to assess efficacy. Would not recommend initiation of long-acting opiate therapy at this time. Thank you for allowing us to participate in the care of Mrs. San. Pain service will sign off on patient at this time. History of Present Illness Reason for Consultation: Intractable right hip pain Requesting Physician: Maximus Siu MD Attending Physician: Alina Pascual MD History of Present Illness Mrs. San is a 69-year-old morbidly obese white female who was admitted due to intractable right sided hip pain. She reported onset of her hip pain in approximately early September without known injury which has been progressive and most recently interfering with her ability to ambulate and complete any household activities. The patient was diagnosed with left-sided estrogen receptor negative breast cancer in August and underwent lumpectomy and is currently involved in chemoradiation with Taxotere and cyclophosphamide. Patient is describing sharp pain deep in the hip joint aggravated with any walking, sitting and movement. Patient indicates that she is able to find a comfortable position. Her pain ranges between a 2/10 at its best and 10/10 at its worst. She denies any axial low back pain or lumbar radicular pattern to her pain complaint. She denies radiation of pain to the thigh or knee. She does have some chronic right-sided knee pain and TKA was discussed immediately prior to her recent breast cancer diagnosis. Patient has found minimal relief from use of Oxy IR and IV hydromorphone. Imaging studies have been completed with right hip which revealed avascular necrosis. Further imaging with contrast was completed yesterday which did rule out any associated malignancy in the hip location. Ortho consultation was noted regarding her potential candidacy for SUKUMAR. Patient did utilize NSAIDs at home and Tylenol with minimal relief. She is currently on Tylenol 1000 mg 3 times daily. She does report some peripheral neuropathy associated with her chemotherapy regimen but denies lower extremity paresthesia or notable weaknesses. Patient has no further constitutional complaints. Plan of care discussed with Dr. Judith Jane. Pain Assessment Full Body Front + Back: 2 1. Right hip/groin location Pain scale - at its best (0-10): 2 Pain scale - at its worst (0-10): 10 Allergies Allergy/AdvReac Type Severity Reaction Status Date / Time amoxicillin Allergy Intermediate HIVES Verified 10/26/24 08:38 Home Medications Medication Instructions Recorded Confirmed Type albuterol sulfate 90 mcg/actuation 2 puff inhalation Q6H PRN ASTHMA 10/26/24 11/13/24 History aerosol inhaler atorvastatin 40 mg tablet 40 mg PO DAILY 10/26/24 11/13/24 History citalopram 20 mg tablet 20 mg PO DAILY 10/26/24 11/13/24 History diclofenac sodium 1 % topical gel 2 g topical BID PRN Pain 10/26/24 11/13/24 History (Arthritis Pain (diclofenac)) empagliflozin 10 mg tablet 10 mg PO DAILY 10/26/24 11/13/24 History (Jardiance) levothyroxine 50 mcg capsule 50 mcg PO DAILY 10/26/24 11/13/24 History loratadine 10 mg capsule (Allergy 10 mg PO DAILY PRN chemo 10/26/24 11/13/24 History Relief (loratadine)) lorazepam 0.5 mg tablet 0.5 mg PO BID PRN Other 10/26/24 11/13/24 History losartan 25 mg tablet 25 mg PO DAILY 10/26/24 11/13/24 History naproxen sodium 220 mg capsule 220 mg PO BID PRN Pain 10/26/24 11/13/24 History (Aleve) omeprazole 20 mg capsule,delayed 20 mg PO DAILY 10/26/24 11/13/24 History release ondansetron HCl 8 mg tablet 8 mg PO Q8H PRN n/v 10/26/24 11/13/24 History potassium chloride 20 mEq 20 meq PO BID 10/26/24 11/13/24 History tablet,extended release triamterene 37.5 1 tab PO DAILY 10/26/24 11/13/24 History mg-hydrochlorothiazide 25 mg tablet dexamethasone 4 mg tablet 8 mg PO BID 11/06/24 11/13/24 History prochlorperazine maleate 10 mg 10 mg PO Q6H PRN n/v 11/06/24 11/13/24 History tablet Pain History Pain Intensity Pain scale - at its best (0-10): 2 Pain scale - at its worst (0-10): 10 Patient History Medical History Rosacea Stress incontinence Degeneration of cervical intervertebral disc Benign neoplasm of colon GERD (gastroesophageal reflux disease) Hypothyroidism Diabetes Osteoarthritis Anxiety History of COVID-19 >1 yr ago-mild cold symptoms, loss of taste and smell; resolved Morbid obesity Depression Asthma mild/stable; rarely uses inhaler Hyperlipidemia Hypertension Surgical History H/O arthroscopic knee surgery Right knee Hx of LASIK Both eyes S/P lumpectomy, left breast With left axillary LN biopsy on 09/28/24 Dr. Horowitz History of colonoscopy History of endometrial biopsy History of tubal ligation History of tonsillectomy Family History Mother , 94yo Hypertension Diabetes Aortic valve replaced Arthritis Father , 54yo Cerebral aneurysm Stroke Hypertension Brother Skin cancer, basal cell Brother No problems noted. Brother Arthritis Hypertension Sister Ureter cancer Hypertension Sister No problems noted. 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 Speech and thought process appropriate. Mood and affect appropriate. Cognition intact. Patient morbidly obese and physically deconditioned. Head: Normocephalic and atraumatic. ENT: No evidence of nasal or oral mucosal lesions. Mucous membranes are moist. Eyes: Pupils equal round reactive to light. Neck: Supple without adenopathy and full range of motion. Abdomen: Soft and nondistended. No organomegaly. Bowel sounds active. Patient is nontender over the ilioinguinal or genitofemoral nerve. There is no palpable pain along the groin/inguinal region. No palpable mass. Back/spine: Patient is moderately tender over the right SI joint provocative testing and nontender on the left. No focal midline or facet joint tenderness appreciated. Nontender in the paravertebral or gluteal musculature. Lower extremities: Right hip is minimally tender with internal/external rotation. Right hip tenderness appreciated with resisted hip flexion. Strength testing was 5/5 with dorsiflexion, plantarflexion and hip flexion/extension. Sensation is intact distally to sharp and dull. Neurologic: Cranial nerves grossly intact. Ambulatory function not witnessed. Results (Pain Clinic) Diagnostic Review MRI Findings: [place], [place] [phone] Magnetic Resonance Report Patient: OSMAN SAN Admit Date: 11/13/24 MR#: [id number] Address1: [address] [place] [address] Acct ID:[id number] Address2: Date: 1955 [facility] Zip: [place] [address] Age: 69 Location: ED Sex: F Room/Bed: Att Phy: Diagnosis: HIP PAIN Caroline Phy: Hannah Siegel DO Service Date: 11/13/24 Fam Phy: Interpreting Phy: Jose Miguel Sosa MDAdmit Phy: Ordering Phy: Carlo Alexander MD cc: ~ EXAM: MR hip RT wo con CLINICAL HISTORY: intractable R hip pain TECHNIQUE: MRI of the hip joint was performed without intravenous contrast administration. Sequences obtained include coronal T1-weighted, T2-weighted, STIR (Short Tau Inversion Recovery), axial T1-weighted, and T2-weighted sequences. COMPARISON: CT study 11.13.2024 was reviewed. FINDINGS: diffuse osteopenia mounting to lytic configuration seen on CT images, corresponding to bilateral pelvic bones, femoral heads and proximal femoral shafts foci of high T1/T2 and depressed on STIR signal intensities corresponding to FAT signal. Articular Structures: Hip joint alignment and morphology are normal. mild joint effusion. Articular cartilage appears intact without focal defects. Labrum: Labrum is intact without evidence of tears or detachment. Normal morphology and signal intensity. Femoral Head and Neck: Normal morphology of the femoral head and neck. No evidence of avascular necrosis. Acetabulum: Acetabular shape and depth are within normal limits. No evidence of acetabular labral tear or impingement. Muscles and Tendons: Hip muscles and tendons demonstrate normal signal intensity without evidence of tears or tendinopathy. Normal appearance of the iliopsoas tendon, gluteal muscles, and piriformis muscle. Soft Tissues: No evidence of soft tissue masses or abnormalities adjacent to the hip joint. Normal appearance of the hip joint capsule and surrounding fat planes. Vascular Structures: Normal appearance of the femoral artery and vein without evidence of vascular anomalies. IMPRESSION: 1. The marrow changes are likely of marked osteopenia/porosis than being of marrow infiltrative disease, e.g; plasma cell dyscrasia, yet laboratory correlation is recommended. 2. Mild joint effusion. There is AVN of the right medial femoral head. Electronically signed by Jose Miguel Sosa 11-13-2024 9:01 PM Dictated: 11/13/241930 Transcribed: [place], [place] [phone] Magnetic Resonance Report Patient: OSMAN SAN Admit Date: 11/13/24 MR#: [id number] Address1: [address] [place] [address] Acct ID:[id number] Address2: Date: 1955 [facility] Zip: [place] [address] Age: 69 Location: 3E Sex: F Room/Bed: E307-1 Att Phy: Maximus Siu MD Diagnosis: HIP PAIN Caroline Phy: Hannah Siegel DO Service Date: 11/16/24 [facility] Phy: Interpreting Phy: Noah Gutierrez MDAdmit Phy: Emily Obrien MD Ordering Phy: Maximus Siu MD cc: ~ Exam(s): MRI RIGHT HIP W/WO Contrast IV Amt: 11.5ml gadavist EXAM: MR Right Lower Extremity Without and With Intravenous Contrast, Hip CLINICAL HISTORY: Reason for exam: ro metastases. TECHNIQUE: Multiplanar magnetic resonance images of the right hip without and with intravenous contrast. CONTRAST: Patient received 11.5ml gadavist of IV contrast COMPARISON: 11/13/2024 MRI FINDINGS: Somewhat heterogeneous marrow signal but no focal suspicious lesion. No acute fracture. No joint effusion. No soft tissue implant to or adenopathy. No acute myotendinous abnormality. No free fluid or fluid collection in the pelvis. IMPRESSION: No evidence of metastatic disease. Electronically signed by: Noah Gutierrez MD 11/16/24 23:02 PM Dictated: 11/16/242301 Transcribed: 11/16/242301 CT Findings: [place], [place] [phone] CT Scan Report Patient: OSMAN SAN Admit Date: 11/13/24 MR#: [id number] Address1: [address] [place] [address] Acct ID:[id number] Address2: Date: 1955 [facility] Zip: [place] [address] Age: 69 Location: ED Sex: F Room/Bed: Att Phy: Diagnosis: HIP PAIN Caroline Phy: Hannah Siegel DO Service Date: 11/13/24 James Phy: Interpreting Phy: Nick Beatty [facility] Phy: Ordering Phy: Carlo Alexander MD cc: ~ Exam: CT right hip without contrast. History: Severe hip pain. History of breast cancer. Technique: Routine axial noncontrast CT images of the right hip with sagittal and coronal reconstructions without contrast were obtained and reviewed. Comparison: Plain film correlate 06 November 2024. Findings: Licensing Analyst film demonstrates no acute abnormality. Soft tissue windows demonstrate small right hip joint effusion. Periarticular soft tissues are within normal limits. Bone windows demonstrate likely small bone island intertrochanteric femur. Mild productive osteophytes of the acetabulum. Ossification of the anterior acetabular labrum. No occult fracture. Impression: Chronic changes with small joint effusion. No occult fracture. Consider MRI. Electronically signed by Nick Beatty 11-13-2024 5:17 PM Dictated: 11/13/24 1650 Transcribed: Radiology Findings: [facility], [place] [phone] XRay Report Patient: OSMAN SAN Admit Date: 11/06/24 MR#: [id number] Address1: [address] [place] [address] Acct ID:[id number] Address2: Date: 1955 [facility] Zip: [place] [address] Age: 69 Location: ED Sex: F Room/Bed: Att Phy: Diagnosis: R HIP PAIN Caroline Phy: Hannah Siegel DO Service Date: 11/06/24 Fam Phy: Interpreting Phy: Shan Otto DOAdmit Phy: Ordering Phy: Meliton Moore DO cc: ~ INDICATION: Hip pain. No injury. TECHNIQUE: One view the pelvis. 2 views of the right hip. COMPARISON: No relevant priors. FINDINGS: No acute fracture or dislocation. No lytic or blastic bony lesions seen. Mild to moderate bilateral hip joint space loss. Soft tissues appear unremarkable. IMPRESSION: Mild to moderate bilateral hip joint space loss. Electronically signed by Shan Otto 11-06-2024 4:07 PM Dictated: 11/06/24 1600 Transcribed:
[2024-11-17] MEDS: MAGNESIUM SULFATE / D5W 1 GM/100 ML BAG IV ONE (09:34)
[2024-11-17] MEDS: CELECOXIB 100 MG CAP PO SCH (09:34)
--- NOTE | 2024-11-17 11:37 | Hospitalist Progress Note ---
Date of Service November 17, 2024 Assessment & Plan (1) Acute pain of right hip: (2) Malignant neoplasm of upper-outer quadrant of left breast in female, estrogen receptor negative: Plan 69yoF with PMHx significant for breast cancer, OA of both knees, asthma, type 2 diabetes, hypertension, hyperlipidemia, asthma, depression who presents for reevaluation of right-sided hip pain. She reports intermittent severe right hip pain affecting her activities of daily living. 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 Outpatient follow up with Onco Pancytopenia: Patient received her cycle 2 chemotherapy Taxotere and cyclophosphamide on 11/09/24 and also received Pegfilgrastim. Leukopenia improved from 0.87 yesterday to 2.96 today Hypomagnesemia: Replete and monitor DMII Holding home jardiance ISS Diet: DMII DVT prophylaxis: SCDs/thrombocytopenia. I spent a total of 50 minutes coordinating, documenting and providing care for this patient excluding time spent in performance of separately billed services Admission and Anticipated Discharge Date Admission Date: November 13, 2024 Subjective Patient seen and examined Reports right hip pain with movement Denied other complaints Physical Exam Constitutional: + well hydrated and + obese; no acute di stress Eyes: PERRL, conjunctivae normal, anicteric sclerae ENMT: external ear and nose normal, oropharynx normal Respiratory: normal respiratory effort, lungs clear to auscultation Cardiovascular: Rate/Rhythm: regular rate and regular rhythm Gastrointestinal (Abdomen): normal bowel sounds, soft, nontender, no hepatosplenomegaly Musculoskeletal: No pedal edema Neurologic: PERRL, EOMI, accommodation nl, no face palsy, no dysarthria Psychiatric: A+Ox3, euthymic affect Results & Data Results & Data Vital Signs (Past 12 Hours) Vital Signs Temp Pulse Resp BP Pulse Ox O2 Del Method 11/17/24 07:19 36.8 C 87 16 127/75 97 Room Air Laboratory Results Abnormal lab results 11/16/24 11/16/24 11/17/24 Range/Units 16:42 21:03 05:28 WBC 2.96 L (4.8-10.8) K/ul RBC 3.90 L (4.20-5.40) M/uL Hgb 11.8 L (12.0-16.0) g/dl Hct 35.3 L (37.0-47.0) % Plt Count 69 L (130-400) K/uL Neut # (Auto) 1.12 L (1.40-6.50) K/uL Lymph # (Auto) 0.72 L (1.20-3.40) K/uL Dickens # (Auto) 0.87 H (0.11-0.59) K/uL Creatinine 0.59 L (0.6-1.2) mg/dl Glucose 118 H (70-99(Fasting)) mg/dl POC Glucose 100 H 117 H (70-99) mg/dl Magnesium 1.5 L (1.7-2.4) mg/dl 11/17/24 11/17/24 Range/Units 07:56 11:36 WBC (4.8-10.8) K/ul RBC (4.20-5.40) M/uL Hgb (12.0-16.0) g/dl Hct (37.0-47.0) % Plt Count (130-400) K/uL Neut # (Auto) (1.40-6.50) K/uL Lymph # (Auto) (1.20-3.40) K/uL Dickens # (Auto) (0.11-0.59) K/uL Creatinine (0.6-1.2) mg/dl Glucose (70-99(Fasting)) mg/dl POC Glucose 124 H 117 H (70-99) mg/dl Magnesium (1.7-2.4) mg/dl
[2024-11-18 07:40] LABS: Hemoglobin 11.8 g/dl (12.0-16.0); Mean Corpuscular Hgb Conc 32.8 g/dL (32.0-36.0); Mean Corpuscular Volume 91.6 fL (80.0-100.0); Mean Platelet Volume 12.3 fL (9.4-12.4); Platelet Count 102 K/uL (130-400); RDW Coefficient of Variation 13.9 % (11.5-14.5); RDW Standard Deviation 46.2 fL (36.4-46.3); Red Blood Count 3.93 M/uL (4.20-5.40)
[2024-11-18 07:42] LABS: Nucleated RBC # (auto) 0.05 K/uL (0.00-0.12); Nucleated RBC % (auto) 0.5 %; White Blood Count 10.14 K/ul (4.8-10.8)
[2024-11-18 07:46] LABS: BUN Creatinine Ratio 18.1 (10-20); Creatinine Clr Calc Pharmacy 93.1 ml/min; Magnesium 1.9 mg/dl (1.7-2.4); Phosphorus 3.2 mg/dl (2.5-4.9); Potassium 3.4 mmol/L (3.5-5.1)
[2024-11-18 08:26] LABS: ALC (manual) 1.42 K/uL (1.2-3.4); Basophils % (manual) 1 %; Eosinophils % (manual) 1 %; Lymphocytes # (manual) 1.42 K/uL (1.2-3.4); Lymphocytes % (manual) 14 %; Metamyelocytes % (manual) 2 %; Monocytes # (manual) 1.12 K/uL (0.11-0.59); Monocytes % (manual) 11 %; Myelocytes % (manual) 2 %; Neutrophils % (manual) 68 %; Ovalocytes 1+; Polychromasia 1+; Promyelocytes % (manual) 1 %; Toxic Granulation 1+
--- NOTE | 2024-11-18 15:11 | Hospitalist Progress Note ---
Date of Service November 18, 2024 Assessment & Plan (1) Acute pain of right hip: (2) Malignant neoplasm of upper-outer quadrant of left breast in female, estrogen receptor negative: Plan 69yoF with PMHx significant for breast cancer, OA of both knees, asthma, type 2 diabetes, hypertension, hyperlipidemia, asthma, depression who presents for reevaluation of right-sided hip pain. She reports intermittent severe right hip pain affecting her activities of daily living. She is being managed for the following: Hip Pain, right Avascular necrosis of medial femoral head XR right hip notedmild to moderate hip joint space loss CT hip noting small joint effusion MRI hip wo con- small area of avascular necrosis on the medial femoral head MRI hip w/co did not show any metastatic disease Ortho recs noted Pain mgt consulted Optimize pain control PT/OT CM working on placement Outpatient ortho follow up Vitamin D deficiency VIt D level is <7 Started on po Ergocalciferol 50,000U q week PCP to recheck in 6 weeks Breast cancer, left Triple negative s/p lumpectomy, receiving adjuvant chemotherapy with Taxotere and cyclophosphamide - 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 Outpatient follow up with Onco Pancytopenia: Patient received her cycle 2 chemotherapy Taxotere and cyclophosphamide on 11/09/24 and also received Pegfilgrastim. Leukopenia improved from 0.87 yesterday to 2.96 today DMII Holding home jardiance ISS Diet: DMII DVT prophylaxis: SCDs/thrombocytopenia. I spent a total of 35 minutes coordinating, documenting and providing care for this patient excluding time spent in performance of separately billed services Admission and Anticipated Discharge Date Admission Date: November 13, 2024 Subjective Patient seen and examined Reports right hip pain is better controlled Denied other complaints Physical Exam Constitutional: + well hydrated and + obese; no acute di stress Eyes: PERRL, conjunctivae normal, anicteric sclerae ENMT: external ear and nose normal, oropharynx normal Respiratory: normal respiratory effort, lungs clear to auscultation Cardiovascular: Rate/Rhythm: regular rate and regular rhythm Gastrointestinal (Abdomen): normal bowel sounds, soft, nontender, no hepatosplenomegaly Neurologic: PERRL, EOMI, accommodation nl, no face palsy, no dysarthria Psychiatric: A+Ox3, euthymic affect Results & Data Results & Data Vital Signs (Past 12 Hours) Vital Signs Temp Pulse Pulse Resp BP Pulse Ox O2 Del Method 11/18/24 14:48 36.7 C 79 16 151/82 H 97 Room Air 11/18/24 08:56 36.6 C 91 H 143/76 H 96 Room Air 11/18/24 07:32 36.6 C 85 16 139/84 94 Room Air Laboratory Results Abnormal lab results 11/17/24 11/17/24 11/18/24 Range/Units 16:28 20:42 05:28 RBC 3.93 L (4.20-5.40) M/uL Hgb 11.8 L (12.0-16.0) g/dl Hct 36.0 L (37.0-47.0) % Plt Count 102 L (130-400) K/uL Neutrophils # (Manual) 6.90 H (1.40-6.50) K/uL Total Absolute Neuts 6.90 H (1.4-6.5) K/uL Monocytes # (Manual) 1.12 H (0.11-0.59) K/uL Metamyelocytes # (Man) 0.20 H (0-0) K/uL Myelocytes # (Manual) 0.20 H (0-0) K/uL Promyelocytes # (Man) 0.10 H (0-0) K/uL Potassium 3.4 L (3.5-5.1) mmol/L Glucose 119 H (70-99(Fasting)) mg/dl POC Glucose 118 H 134 H (70-99) mg/dl 25-OH Vitamin D Total < 7.0 L (30-100) ng/ml 11/18/24 11/18/24 Range/Units 07:32 11:26 RBC (4.20-5.40) M/uL Hgb (12.0-16.0) g/dl Hct (37.0-47.0) % Plt Count (130-400) K/uL Neutrophils # (Manual) (1.40-6.50) K/uL Total Absolute Neuts (1.4-6.5) K/uL Monocytes # (Manual) (0.11-0.59) K/uL Metamyelocytes # (Man) (0-0) K/uL Myelocytes # (Manual) (0-0) K/uL Promyelocytes # (Man) (0-0) K/uL Potassium (3.5-5.1) mmol/L Glucose (70-99(Fasting)) mg/dl POC Glucose 126 H 143 H (70-99) mg/dl 25-OH Vitamin D Total (30-100) ng/ml
[2024-11-18] MEDS: ERGOCALCIFEROL 1250 MCG (50,000 UNITS) CAP PO SCH (16:49)
[2024-11-18 20:09] VITALS: O2SAT 95
[2024-11-19 06:26] LABS: BUN Creatinine Ratio 18.2 (10-20); Calcium 9.1 mg/dl (8.6-10.3); Potassium 3.5 mmol/L (3.5-5.1)
[2024-11-19 07:36] VITALS: BP 127/84; TEMP 98.1
--- NOTE | 2024-11-19 10:43 | Discharge Summary ---
Date of Service November 19, 2024 Admission HPI Per Admitting Provider Pt is a 69yoF with PMHx significant for breast cancer, OA of both knees, asthma, type 2 diabetes, hypertension, hyperlipidemia, asthma, depression who presents for reevaluation of right-sided hip pain. States that she has been dealing with this right-sided hip pain more recently after having right-sided knee pain that she was told cannot be operated on until she loses weight. States around the same time she was also diagnosed with breast cancer. Is currently undergoing chemotherapy for that. States she was evaluated in the emergency room last week for hip pain and was discharged with 4 doses of oxycodone which she states helped at that time. She was told that she would have additional medication prescribed but she ended up getting the medication later than anticipated and noted it provided no significant relief. So she is presenting once more for reevaluation. In the ED she had a CT scan which did not show an acute cause but did note of a joint effusion. Per ED provider, case was discussed with orthopedics who recommended an MRI and admission and PT OT if MRI unremarkable. Admission Exam Per Admitting Provider General: Alert, oriented. No acute distress Skin: No noted rashes or bruises Psych: Appropriate mood and affect HEENT: NC/AT CV: RRR, Resp: Breath sounds decreased bilaterally, no increased effort of breathing Abdomen: Soft, nontender MSK: Pt with pain with direct palpation over lateral hip Extremities: edema in LLE>RLE Principal Diagnosis Avascular necrosis of right hip Vitamin D deficiency Discharge Exam Constitutional + well hydrated and + obese; no acute distress Eyes PERRL, conjunctivae normal, anicteric sclerae ENMT external ear and nose normal, oropharynx normal Respiratory normal respiratory effort, lungs clear to auscultation Cardiovascular Rate/Rhythm: regular rate and regular rhythm Gastrointestinal (Abdomen) normal bowel sounds, soft, nontender, no hepatosplenomegaly Musculoskeletal No pedal edema Neurologic PERRL, EOMI, accommodation nl, no face palsy, no dysarthria Psychiatric A+Ox3, euthymic affect Discharge Data Allergies Allergy/AdvReac Type Severity Reaction Status Date / Time amoxicillin Allergy Intermediate HIVES Verified 10/26/24 08:38 Consultations 11/13/24 18:27 ED Decision to Admit Stat 11/13/24 18:47 Consult Orthopedic Surgery Routine 11/16/24 11:48 Consult Pain Management Routine Ordered Studies 11/13/24 16:17 CT hip RT wo con Stat 11/13/24 18:23 MR hip RT wo con Stat 11/16/24 13:45 MR hip RT wo/w con Routine Hospital Course (1) Acute pain of right hip: (2) Malignant neoplasm of upper-outer quadrant of left breast in female, estrogen receptor negative: Plan 69yoF with PMHx significant for breast cancer, OA of both knees, asthma, type 2 diabetes, hypertension, hyperlipidemia, asthma, depression who presents for reevaluation of right-sided hip pain. She reports intermittent severe right hip pain affecting her activities of daily living. She is being managed for the following: Hip Pain, right Avascular necrosis of medial femoral head XR right hip notedmild to moderate hip joint space loss CT hip noting small joint effusion MRI hip wo con- small area of avascular necrosis on the medial femoral head MRI hip w/co did not show any metastatic disease Ortho and Pain mgt evaluated Patient's pain management was optimized She reports she was following up with Ortho for possible right knee replacement in the future and that she will follow up with her Ortho about her hip as well Patient had PT/OT inpatient Was initially planned for discharge to SNF Reports feeling good today and that she can do well at home. 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 Outpatient follow up with Onco Pancytopenia: Patient received her cycle 2 chemotherapy Taxotere and cyclophosphamide on 11/09/24 and also received Pegfilgrastim. Leukopenia improved from freddie of 0.77 yesterday to 10 Total Time Total Time Spent Total Time Spent (In Minutes): 35 Total Time Includes: Examination of the Patient, Discharge Planning and Medication Reconciliation Discharge Plan Discharge Items Patient Disposition: Home - Home Health Services Reason For Visit: HIP PAIN Discharge Diagnosis: Avascular necrosis of right hip Vitamin D deficiency Activity: As commented below Activity Comment: As recommended by Physical therapy Non-emergency contact: Primary Care Provider and Surgeon Call non-emergency contact if: you have any medication questions and your symptoms worsen Follow-up/Referrals: Hannah Siegel, [Primary Care Provider] - (Date & Time 11/26/2024 11:10 AM Provider: aHnnah Siegel DO Family [facility] ) Diet: Heart Healthy Addtl Attending Provider Instructions: Mrs San You were hospitalized and managed for the above listed diagnoses. You are being discharged home with home health/therapy. Please ensure follow up with your Orthopedic surgeon and Primary Doctor. You were started on Vitamin D once a week for low vitamin D levels. It was a pleasure taking care of you Pending Studies at Discharge: No Stand-Alone Forms: My [facility] [employer], Smoking Cessation Medications and DC Order Prescriptions: New celecoxib [Celebrex] 100 mg Capsule 100 mg PO BID 30 Days Qty: 60 0RF ergocalciferol (vitamin D2) 1,250 mcg (50,000 unit) Capsule 1,250 mcg PO Q7D Qty: 6 0RF acetaminophen [Tylenol Extra Strength] 500 mg Tablet 1,000 mg PO Q8H PRN (Reason: pain) Qty: 60 0RF oxycodone 5 mg Tablet 5 mg PO TID PRN (Reason: severe pain (scale score 7-10)) Qty: 20 0RF Continued naproxen sodium [Aleve] 220 mg capsule 220 mg PO BID PRN (Reason: Pain) citalopram 20 mg tablet 20 mg PO DAILY atorvastatin 40 mg tablet 40 mg PO DAILY diclofenac sodium [Arthritis Pain (diclofenac)] 1 % gel 2 g topical BID PRN (Reason: Pain) Rx Instructions: apply to single elbow, wrist or hand; for hand includes palm/fingers/back of hand Jardiance 10 mg tablet 10 mg PO DAILY levothyroxine 50 mcg capsule 50 mcg PO DAILY Allergy Relief (loratadine) 10 mg capsule 10 mg PO DAILY PRN (Reason: chemo) lorazepam 0.5 mg tablet 0.5 mg PO BID PRN (Reason: Other) losartan 25 mg tablet 25 mg PO DAILY omeprazole 20 mg capsule,delayed release(DR/EC) 20 mg PO DAILY ondansetron HCl 8 mg tablet 8 mg PO Q8H PRN (Reason: n/v) potassium chloride 20 mEq tablet extended release 20 meq PO BID triamterene-hydrochlorothiazid 37.5-25 mg tablet 1 tab PO DAILY albuterol sulfate 90 mcg/actuation HFA aerosol inhaler 2 puff INHALATION Q6H PRN (Reason: ASTHMA) Patient Comments: LAST USE MONTHS AGO prochlorperazine maleate 10 mg tablet 10 mg PO Q6H PRN (Reason: n/v) dexamethasone 4 mg tablet 8 mg PO BID Rx Instructions: For 3 days starting the day prior to chemotherapy Discharge Orders: Discharge Order (Routine); Ordered 11/19/24 Ordered By: Alina Romero/Other Patient Handouts: Managing Type 2 Diabetes Admission Data Admit Date/Time: 11/13/24 18:43 Attending Provider: Alina Pascual I. Admit Provider: Emily Obrien Primary Care Provider: Hannah Siegel Other Providers: Emily Obrien; Sivakumar Smith; Trever Morgan; Sukhdeep Rodrigues; Maximus Siu; Kaleb Black [facility] Other Interventions: Discharge Summary Assessment (RN) Last Done: 11/19/24 12:01
[2024-11-19 12:06] VITALS: PULSE 85
== END 2024-11-19 14:14 | disposition home health service (06) | DRG 553 ==
LOC: ED 15:35 → INTOOBSV 18:43 → 3E 18:43 → SUATTDRO 18:43 → 3E 21:02